=== PATIENT | female | born 1955 | race Caucasian/White ===

== ENCOUNTER → 2023-09-05 12:38 | Outpatient (REF) | payer MEDICARE, OTHER, SELFPAY | LOC: WDC 12:38 | PROVIDERS: ATTENDING PHYSICIAN Physician Assistant Medical | DX: Z12.31 Encounter for screening mammogram for malignant neoplasm of breast (principal) | CPT/HCPCS: 77063; 77067 ==

== ENCOUNTER → 2024-09-10 12:53 | Outpatient (REF) | payer MEDICARE, OTHER, SELFPAY | LOC: WDC 12:53 | PROVIDERS: ATTENDING PHYSICIAN Physician Assistant Medical | DX: Z12.31 Encounter for screening mammogram for malignant neoplasm of breast (principal) | CPT/HCPCS: 77063; 77067 ==

== ENCOUNTER → 2024-10-25 08:17 | Outpatient (REF) | payer MEDICARE, OTHER, SELFPAY | LOC: RAD 08:17 | PROVIDERS: ATTENDING PHYSICIAN Physician Assistant Medical | DX: R10.13 Epigastric pain (principal) | CPT/HCPCS: 76700; 76770 ==

== ENCOUNTER 2024-10-27 10:37 | Inpatient (IN) | payer MEDICARE, OTHER, SELFPAY ==
[2024-10-25 18:21] VITALS: BP 150/81
[2024-10-25 18:44] LABS: Urine Albumin Negative (Neg - Trace); Urine Bilirubin Negative (Negative); Urine Character Clear (Clear); Urine Color Yellow; Urine Glucose Negative (Negative); Urine Ketone Negative (Negative); Urine Leukocyte Negative (Negative); Urine Nitrite Negative (Negative); Urine Occult Blood Negative (Negative); Urine Urobilinogen Negative (Neg - 1+)
[2024-10-25 18:46] LABS: % Basophils 0.3 % (0-2); % Eosinophils 1.6 % (0-6); % Immature Granulocytes 0.2 % (0-0.5); % Lymphocytes 39.9 % (20.5-51.1); % Monocytes 10.3 % (1.7-9.3); % Neutrophils 47.7 % (42.2-75.2); Absolute Eosinophils 0.1 10^3/uL (0-0.7); Absolute Lymphocytes 2.6 10^3/uL (1.2-3.4); Absolute Monocytes 0.7 10^3/uL (0.1-0.6); Absolute Neutrophils 3.1 10^3/uL (1.4-6.5); Hematocrit 37.5 % (37.0-47.0); Hemoglobin 12.5 g/dL (12.0-16.0); Mean Corp Hgb Conc. 33.3 g/dL (33.0-37.0); Mean Corpuscular Hgb 29.8 pg (27.0-31.0); Mean Corpuscular Volume 89.3 fL (81.0-99.0); Mean Platelet Volume 9.8 fL (7.4-10.4); Nucleated Red Blood Cells % 0 %; Platelet Count 256 10^3/uL (130-400); Red Cell Dist. Width 14.9 % (11.5-14.5); White Blood Cell Count 6.4 10^3/uL (4.8-10.8)
[2024-10-25 18:56] LABS: ALT (SGPT) 325 U/L (0-35); AST (SGOT) 154 U/L (14-36); Albumin 4.4 g/dl (3.5-5.0); Alkaline Phosphatase 492 U/L (38-126); Blood Urea Nitrogen 13 mg/dl (7-17); Calcium 9.5 mg/dl (8.4-10.2); Carbon Dioxide 25 mmol/L (22-30); Chloride 105 mmol/L (98-107); Glucose 101 mg/dl (70-99); Potassium 3.6 mmol/L (3.5-5.1); Sodium 135 mmol/L (135-145); Total Bilirubin 6.4 mg/dl (0.2-1.3); Total Protein 7.2 g/dl (6.3-8.2); eGFR > 60.00
[2024-10-25 21:08] VITALS: BP 121/74
[2024-10-25 21:25] VITALS: BMI 20.2
--- NOTE | 2024-10-25 22:35 | ED.GENMED ---
History of Present Illness
General
Chief Complaint: Abdominal Pain
Source: patient
Exam Limitations: none
Time Seen by Provider: 10/25/24 22:10
Nursing documentation reviewed up to this point in time: agreed with
History of Present Illness
History of Present Illness:
Pleasant 69-year-old female presents to the emergency department with right upper quadrant and upper abdominal pain has been present off and on for weeks. Today she had an outpatient ultrasound ordered by her primary care physician that showed
cholelithiasis. They suspected choledocholithiasis in the common bile duct. Patient reports that she was notified this afternoon. By that time the whites of her eyes had yellowed, so she came in to the emergency department. She states that her
pain has not changed. It is still intermittent in nature. She reports it as a dull ache.
Past History
Past History
ED Past Medical History: None
ED Past Surgical History: Orthopedic (Left hip replacement)
Social History
Personal:
Review of Systems
Review of Systems
Allergies reviewed?: Yes
All Other Systems: ROS reviewed and negative except as documented in HPI and ROS
Constitutional: Reports fatigue
EENT: Reports no symptoms
Respiratory: Reports no symptoms
Cardiac: Reports no symptoms
ABD/GI: Reports abdominal pain; Denies nausea, vomiting, constipated or bloody stools
: Reports no symptoms
Musculoskeletal: Reports no symptoms
Skin: Reports no symptoms
Neurological: Reports other (Jaundiced)
Endocrine: Reports no symptoms
Hematologic/Lymphatic: Reports no symptoms
Psychiatric: Reports anxiety
Phy Exam
General Physical Exam
General Presentation: well appearing and no apparent distress
General Skin: warm and dry
General Habitus: normal
General Mental: alert
General Hydration: appears well hydrated
ENT Exam
ENT Exam: EOMI, pharynx normal, neck supple and normocephalic
Eye Exam
Eye Exam: PERRL, cornea clear and conjunctiva normal
Cardiovascular Exam
Cardiovascular Exam: regular rate/rhythm and no edema
Pulmonary Exam
Pulmonary Exam: lungs clear, no respiratory distress, no rales, no crackles, no rhonchi, no stridor, no wheezing and no cough
Gastrointestinal Exam
Gastrointestinal Exam: normal bowel sounds, non tender, soft, no organomegaly, no pulsatile mass and non distended
Neurological Exam
Neurological Exam: alert, oriented x3, no motor deficits and speech normal
Musculoskeletal Exam
Musculoskeletal Exam: full ROM and no edema
Skin Exam
Skin Exam: jaundice (Scleral icterus)
Psychiatric Exam
Psychiatric Exam: normal mood/affect
Course
Orders/Labs/Results
Orders:
Orders
10/25/24 18:29
Complete Blood Count/With Diff Urgent
Comprehensive Metabolic Panel Urgent
Urinalysis Reflex To Culture Urgent
Date Specimen was Collected: 10/25/24
Time Specimen was Collected: 18:24
Abnormal Lab Results
10/25/24
18:29
RDW 14.9 H %
(11.5-14.5)
Absolute Monos (auto) 0.7 H 10^3/uL
(0.1-0.6)
Monocytes % 10.3 H %
(1.7-9.3)
Glucose 101 H mg/dl
(70-99)
Total Bilirubin 6.4 H mg/dl
(0.2-1.3)
AST 154 H U/L
(14-36)
ALT 325 H U/L
(0-35)
Alkaline Phosphatase 492 H U/L
(38-126)
10/25/24 18:29
10/25/24 18:29
Vital Signs
Initial and Last Documented VS:
Initial Vital Signs
Temp Pulse Resp BP Pulse Ox
98.4 F 86 16 150/81 99
10/25/24 18:21 10/25/24 18:21 10/25/24 18:21 10/25/24 18:21 10/25/24 18:21
Last Documented Vital Signs
Temp Pulse Resp BP Pulse Ox
98.4 F 81 18 121/74 100
10/25/24 18:21 10/25/24 21:08 10/25/24 21:08 10/25/24 21:08 10/25/24 21:08
MDM/Problems Addressed
Differential Diagnosis Includes:
Choledocholithiasis, cholecystitis, gallbladder sludge generalized abdominal pain
MDM/Problems Addressed:
69-year-old female presents emergency department with right upper quadrant abdominal pain that is subacute in nature. Ultrasound this morning showed choledocholithiasis versus sludge. Patient became jaundiced this afternoon. Liver function tests
elevated.
Chronic conditions affecting care:
None
*Critical Care Note
Total Time (30-74mins, 75-104mins- exclusive of procedures): Not Applicable
ED Attending Note
-
Portions of this chart may have been created with voice recognition software.� Occasional wrong word or��sound alike� substitutions may have occurred due to the inherent limitations of voice recognition software.
Discharge Plan
Departure
Patient Disposition: Admit
Date of Disposition: 10/25/24
Time of Disposition: 22:45
Admit to: Med/Surg
Presentation/result/management discussed w/ accepting MD/DO: Hospitalist
Discharge Problem:
Choledocholithiasis, Jaundice
Prescriptions:
No Action
multivitamin 1 EACH capsule
1 ea PO DAILY
Calcium+Vitamin D
1 tab PO DAILY
Vitamin C
1 tab PO DAILY
oxycodone-acetaminophen 5 MG/325 MG tablet
1 - 2 tab PO Q4HPRN PRN (Reason: moderate to severe pain) Qty: 15 0RF
polyethylene glycol 3350 17 GRAMS powder in packet
17 grams PO DAILYPRN PRN (Reason: constipation) Qty: 0 0RF
ibuprofen 200 MG tablet
400 - 600 mg PO Q6HPRN PRN (Reason: mild to moderate pain) Qty: 0 0RF
doxycycline monohydrate 100 mg capsule
100 mg PO BID Qty: 42 0RF
Referrals:
Garcia Marrufo PA-C [Family Provider, Family Practice]
Interventions
Interventions:
*Risk Screen - Suicide Last Done: 10/25/24 18:23
*Neglect/Abuse Screening Last Done: 10/25/24 18:23
SI-Kwxexf-Yvmgobdjgr Assessment Last Done: 10/25/24 21:25
Discharge Date and Time
Print Language: TAJIK
--- NOTE | 2024-10-25 22:58 | HPS.HSE ---
Family Physician
-
Family Physician: Garcia Marrufo
Chief Complaint
-
abdominal pain
History of Present Illness
Patient is a 69-year-old female with no significant past medical history who presented to [facility] ED for evaluation at referral of primary care provider. Patient reports having RUQ abdominal pain intermittently for the past several weeks. She was sent
for an out patient ultrasound that was completed this morning. Patients primary care provider called and informed her to go to ED for evaluation and treatment as US suspected choledocholithiasis in the common bile duct. Patient reports primary
notified her of results and they referred her to go to ED because she had observed decolorization in whites of her eyes and very yellow urine post US in morning. Patient denies fever, chills, cough, shortness of breath, chest pain, nausea, vomiting,
constipation, diarrhea or urinary symptoms.
Medical History
Past Medical History
Past Medical History: Reports None
Past Surgical History: Reports Other
Additional Past Surgical History:
left hip replacement
appendectomy
Social History
Tobacco: Non-smoker
Alcohol: Occasional (rare)
Drug: None
Personal:
Living: With Family
Employment: Retired
Family History
Family History: Other (Father: , [place], [place])
Allergies / Home Medications
Allergies reflects when Allergies were last updated in [employer].
Home Medications with original date entered in [employer]
Allergy/Medication List:
Allergies
Allergy/AdvReac Type Severity Reaction Status Date / Time
No Known Allergies Allergy Verified 11/30/15 21:08
Review of Systems
-
History Source: Patient
Constitutional: Reports No Symptoms
EENT: Reports No Symptoms
Respiratory: Reports No Symptoms
Cardiac: Reports No Symptoms
Abdomen/GI: Reports Abdominal Pain (intermittent dull RUQ pain for approximately 5 weeks)
: Reports Other (bright yellow urine )
Musculoskeletal: Reports No Symptoms
Skin: Reports No Symptoms
Neurological: Reports No Symptoms
Endocrine: Reports No Symptoms
Hematologic/Lymphatic: Reports No Symptoms
Psych: Reports No Symptoms
Physical Exam
Vital Signs
Vital Signs
Temp Pulse Resp BP Pulse Ox
98.4 F 81 18 121/74 100
10/25/24 18:21 10/25/24 21:08 10/25/24 21:08 10/25/24 21:08 10/25/24 21:08
Physical Exam
General: Well Developed, Well Nourished, No Apparent Distress, Comfortable and Conversant
HEENT: NormoCephalic, Moist mucous membranes, Atraumatic, Nose Appears Normal, Ears Appear Normal and Other (jaundiced sclera )
Respiratory: Clear
Cardiac: S1/S2 and Regular Rhythm
GI: Soft, Non Distended, Normal Bowel Sounds and Tender
Rectal: Deferred by Provider
Genito-urinary: Deferred by me
Musculoskeletal: No Clubbing, No Cyanosis and No Edema
Skin: Jaundice and IV/Catheter Site
Neuro: Awake, Alert, AO x 3 and Nonfocal/grossly intact
Psych: Calm and Intact Judgment/Insight
Laboratory Results
-
10/25/24 18:29
10/25/24 18:29
Laboratory Results
Total Bilirubin 6.4 mg/dl (0.2-1.3) H 10/25/24 18:29
AST 154 U/L (14-36) H 10/25/24 18:29
ALT 325 U/L (0-35) H 10/25/24 18:29
Alkaline Phosphatase 492 U/L (38-126) H 10/25/24 18:29
Data Reviewed
-
Ultrasound: Report Reviewed by me (Abd: Cholelithiasis. Intrahepatic and extrahepatic bile duct dilatation. Suspected choledocholithiasis versus sludge in the common bile duct. Correlation with laboratory values and ERCP/MRCP as clinically
indicated. )
Lab Data: Labs Reviewed by me (tot bili 6.4, AST 154, ALT 325, Alk Phos 492)
Impression/Plan
-
IMPRESSION/PLAN:
#transaminitis
#choledocholithiasis
tot bili 6.4, AST 154, ALT 325, Alk Phos 492
Abd US: Cholelithiasis.
Intrahepatic and extrahepatic bile duct dilatation. Suspected choledocholithiasis versus sludge in the common bile duct. Correlation with laboratory values and ERCP/MRCP as clinically indicated.
- Admit to med/surg
- Consult GI
- MRCP
- Trend LFTs
- IVF NSS 100cc/hr
Code status: full code
DVT prophylaxis: Lovenox sq
--- NOTE | 2024-10-25 23:03 | W.PN.UPDATE ---
Update Note
Progress Note Update
Patient was independently examined and I agree with H&P written on the same day. In addition:
69yo M wih subacue epigastric pain found Intrahepatic and extrahepatic bile duct dilatation. Suspected choledocholithiasis versus sludge in the common bile duct on US. Elevated LFT with bile stasis pattern. No fever and no leukocytosis
-Choledocholithiasis
follow LFT, MRCP, GI consult, IVF
We have spent at least 77min admitting the patient
[2024-10-26] VITALS (8 sets, daily range): BP systolic 97–137; BP diastolic 48–79
[2024-10-26] MEDS: NSS 1000 IV ×2 (01:39→11:17)
--- NOTE | 2024-10-26 01:56 | PTCARENOTE ---
Patient arrived to unit shorty after 01:00 via stretcher. AAOx3. Pleasant and cooperative with care. C/o of slight headache when first came to unit but reported that headache went away shortly after admission. No signs of distress noted. Oriented to
unit. Call mehta within reach.
[2024-10-26 08:00] LABS: Hemoglobin 12.5 g/dL (12.0-16.0); Mean Corp Hgb Conc. 32.9 g/dL (33.0-37.0); Mean Corpuscular Volume 88.2 fL (81.0-99.0); Platelet Count 255 10^3/uL (130-400); Red Blood Cell Count 4.31 10^6/uL (4.20-5.40); White Blood Cell Count 5.4 10^3/uL (4.8-10.8)
--- NOTE | 2024-10-26 08:18 | CON.GI ---
Addendum entered and electronically signed by Jessica Dominique MD 10/26/24 18:05:
I saw and examined the patient.
The MED SURG NURSE's note was reviewed and I agree with the note.
Comment: This is a 69-year-old female with past medical history as listed below who presented with symptoms of abdominal pain mostly in the right upper quadrant and epigastric area for the past 5 weeks and also was noted to have jaundice and was
noted to have abnormal LFTs on admission with gallstones and intrahepatic and extrahepatic ductal dilatation on ultrasound and was scheduled for an MRI with MRCP. She has a prior history of ductal dilatation and had an EGD with EUS in 2016 and no
CBD stone or stricture or mass was noted at that time, she did have gallstones and was recommended cholecystectomy but patient had not scheduled cholecystectomy. She denies any fevers or chills.
Assessment and plan abdominal pain with obstructive jaundice and prior history of gallstones and possible stricture with ductal dilatation but prior EUS was unremarkable in 2016. Ultrasound this admission shows gallstones with ductal dilatation.
She is scheduled for MRI with MRCP to rule out possible CBD stone versus biliary stricture or mass. Results are currently pending and based on those results will proceed with ERCP or EUS and ERCP
Original Note:
Consultation
-
Date/Time Consultation Requested: 10/26/24 0030
Date/Time Consultation Performed: 10/26/24 0830
Requesting Provider: ISABELLA Brasher
Performing Provider: ISABELLA Ryan, Jessica Dominique MD
Reason for Consultation: increased LFT's, abdominal pain
Medical History
Chief Complaint / HPI
Chief Complaint: abdominal pain
History of Present Illness:
Pt is a 69yo with hx THR, prior appe, gallstone and prior ductal dilation, colon polyps with onset of RUQ pain for several weeks. She completed US abdomen 10/25 with noted cholelithiasis with intra and extrahepatic biliary dilatation and suspected
choledocholithiasis. Labs on admission with WBC 6,400, hbg 12,5, bili 6.4, AST 154, ALT 325, and alk phos 492.
In review of records pt has appe in 2016. At that time imaging with dilated CBD with intrahepatic bile duct dilatation possible prior stone that has passed vs stricture. She proceeded for EUS with EGD with no choledocholithiasis with
distention of gallbladder with sludge and one small stone. otherwise EGD with gastric erythema. She recall no symptoms so did not proceed with mariela at that time. She now began with upper abdominal pain with random episodes over last 5 weeks. She
also admits to some indigestion without any medication use with new onset of jaundice with dark urine. She denies any recent wt changes, nausea, vomiting, diarrhea, constiaption or rectal bleeding. Hx colonoscopy 2022 with HP and TA polyps.
Past Medical History
Past Medical History: Other (colon polyps, gallstones)
Past Surgical History: Appendectomy and Orthopedic (THR)
Social History
Tobacco: Non-Smoker
Alcohol: None
Drug: None
Personal:
Living: With Family
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
Family History
Family History: Reviewed & Not Pertinent
Allergies / Home Medications
Allergy/AdvReac Type Severity Reaction Status Date / Time
No Known Allergies Allergy Verified 11/30/15 21:08
�Medication �Instructions �Recorded
No Meds [No Current Medications] 10/26/24
Review of Systems
-
History Source: Patient
Constitutional: Reports Other (new onset jaundice )
EENT: Reports No Symptoms
Respiratory: Reports No Symptoms
Cardiac: Reports No Symptoms
Abdomen/GI: Reports Abdominal Pain and Other (indigestion )
: Reports Dark Urine
Musculoskeletal: Reports No Symptoms
Skin: Reports No Symptoms
Neurological: Reports No Symptoms
Endocrine: Reports No Symptoms
Hematologic/Lymphatic: Reports No Symptoms
Vital Signs
Temp Pulse Resp BP Pulse Ox
98.4 F 74 18 108/62 98
10/26/24 07:25 10/26/24 07:25 10/26/24 07:25 10/26/24 07:25 10/26/24 07:25
Physical Exam
Exam
General: Well Developed, Well Nourished and No Apparent Distress
HEENT: Normocephalic and Other (minimal jaundice )
Respiratory: Clear
Cardiac: Regular Rhythm
GI: Soft, Non Distended and Tender (minimal upper abdominal pain )
Musculoskeletal: No Clubbing and No Cyanosis
Skin: Warm and Dry
Neuro: Awake, Alert and AO x 3
Psych: Calm
Results
WBC 5.4 10^3/uL (4.8-10.8) 10/26/24 07:27
Hgb 12.5 g/dL (12.0-16.0) 10/26/24 07:27
Hct 38.0 % (37.0-47.0) 10/26/24 07:27
MCV 88.2 fL (81.0-99.0) 10/26/24 07:27
Plt Count 255 10^3/uL (130-400) 10/26/24 07:27
Absolute Neuts (auto) 3.1 10^3/uL (1.4-6.5) 10/25/24 18:29
Sodium 135 mmol/L (135-145) 10/25/24 18:29
Potassium 3.6 mmol/L (3.5-5.1) 10/25/24 18:29
Chloride 105 mmol/L (98-107) 10/25/24 18:29
Carbon Dioxide 25 mmol/L (22-30) 10/25/24 18:29
BUN 13 mg/dl (7-17) 10/25/24 18:29
Creatinine 0.8 mg/dL (0.6-1.0) 10/25/24 18:29
Calcium 9.5 mg/dl (8.4-10.2) 10/25/24 18:29
Total Bilirubin 6.4 mg/dl (0.2-1.3) H 10/25/24 18:29
AST 154 U/L (14-36) H 10/25/24 18:29
ALT 325 U/L (0-35) H 10/25/24 18:29
Alkaline Phosphatase 492 U/L (38-126) H 10/25/24 18:29
Diagnostic Image Results:
12/02/15 MRCP
Cholelithiasis.
Distention of the proximal to mid common bile duct and of the intrahepatic biliary ductal system. The distal common bile duct tapers. No stone in the common bile duct. Findings could be related to chronic previous obstruction (as perhaps by a
gallstone that has passed). Alternatively, there could be a benign or malignant stricture of the distalmost common bile duct. Consider ERCP for additional evaluation, if clinically warranted.
Mild edema in the ileocolic mesentery, likely related to recent appendectomy.
Prior GI Procedures:
EUS:
12/2015- EUS 1) No evidence of choledocholithiasis. The gallbladder
is distended with sludge and one small stone. Proceed
with cholecystectomy if surgery recommends it.
2) Normal pancreas parenchyma.
3) Regular Z-line.
4) Erythematous antrum which was biopsied.
5) Normal duodenal mucosa.
Colonoscopy: 09/2022 Trip, good prep
- One 8 mm polyp in the ascending colon, removed with
a cold snare. Resected and retrieved.
- One 5 mm polyp in the descending colon, removed with
a cold snare. Resected and retrieved.
- One 3 mm polyp in the rectum, removed with a cold
snare. Resected and retrieved.
- One 2 mm polyp in the rectum, removed with a jumbo
cold forceps. Resected and retrieved.
bx TA and HP polyps
Assessment / Plan
-
Pt is a 69yo with hx THR, prior appe, gallstones, prior ductal dilation, colon polyps with onset of RUQ pain for several weeks with onset of jaundice and dark urine. She completed US abdomen 10/25 with noted cholelithiasis with intra and
extrahepatic biliary dilatation and suspected choledocholithiasis. Labs on admission with WBC 6,400, hbg 12,5, bili 6.4, AST 154, ALT 325, and alk phos 492.In review of records pt has appe in 2016. At that time imaging with dilated CBD with
intrahepatic bile duct dilatation possible prior stone that has passed vs stricture. She proceeded for EUS with EGD with no choledocholithiasis with distention of gallbladder with sludge and one small stone. otherwise EGD with gastric erythema.
She recall no symptoms so did not proceed with mariela at that time.
-intermittent upper abdominal pain x 5 weeks
-increased LFT's
- US with cholelithiasis, ductal dilation ans suspected choledocholithiasis
-prior abnormal MRCP with ductal dilatation with possible passed stone vs stricture s/p follow up EUS with no choledocholithiasis GB distention with stone/sludge
other med problems:
-THR
-appe
-colon polyps
PLAN:etiology of symptoms related to CBD stone vs other
plan for MRCP -- will add with and without contrast with hx possible stricture on prior imaging
-if + stone then proceed with ERCP and surgical eval
cont NPO
hold Lovenox and add compression stocking if ERCP needed
trend labs -- add t bili and lipase
will add INR
-
-
Thank you for consultation and allowing me to participate in the patient's care. Please call the alteration worker GI physician during the after hours with any questions or concerns.
[2024-10-26 08:52] LABS: ALT (SGPT) 297 U/L (0-35); AST (SGOT) 160 U/L (14-36); Alkaline Phosphatase 501 U/L (38-126); Blood Urea Nitrogen 9 mg/dl (7-17); Calcium 9.2 mg/dl (8.4-10.2); Carbon Dioxide 21 mmol/L (22-30); Chloride 111 mmol/L (98-107); Estimated Creatinine Clearance 59 ml/min; Glucose 82 mg/dl (70-99); Potassium 3.8 mmol/L (3.5-5.1); Sodium 140 mmol/L (135-145); Total Bilirubin 7.1 mg/dl (0.2-1.3); Total Protein 6.6 g/dl (6.3-8.2); eGFR > 60.00
[2024-10-26 09:09] LABS: Direct Bilirubin 5.6 mg/dl (0.0-0.4); Lipase 117 U/L (23-300)
--- NOTE | 2024-10-26 09:54 | W.PN.HOSP.TC ---
Today's Communication/Plan
-
For MRCP today
Assessment / Plan
Assessment / Plan
HPI: 69-year-old female with no significant past medical history who presented to [facility] ED for evaluation at referral of primary care provider. Patient reports having RUQ abdominal pain intermittently for the past several weeks. She was sent for an
out patient ultrasound that was completed this morning. Patients primary care provider called and informed her to go to ED for evaluation and treatment as US suspected choledocholithiasis in the common bile duct. Patient reports primary notified her
of results and they referred her to go to ED because she had observed decolorization in whites of her eyes and very yellow urine post US in morning. Patient denies fever, chills, cough, shortness of breath, chest pain, nausea, vomiting,
constipation, diarrhea or urinary symptoms.
#Hyperbilirubinemia/jaundice
#Transaminitis
#Dilated common bile duct
Appreciate GI input, patient for MRCP today
Continue n.p.o., IV fluids, pain control as needed
DVT prophylaxis�SCDs
Full code
Total time spent to see the patient on the floor, examine the patient, review data and lab results, discuss treatment plan with patient, nursing staff around 35 minutes.
Physical Exam
General: No acute distress
HEENT: Normocephalic, Atraumatic, EOMI, MMM, icteric sclerae
Respiratory: Clear to Auscultation bilaterally
Cardiac: Normal S1/S2, Regular Rate and Rhythm
GI: Soft, tender at the right upper quadrant, Nondistended, Normal Bowel Sounds
Extremities: No Clubbing, Cyanosis, or Edema
Neuro: Nonfocal/Grossly Intact
Psych: Calm, Cooperative
Derm: Jaundice
Anticipated Discharge: > 48 hours
Subjective/Interval History
-
Date of Service: October 26, 2024
Patient reports her right upper quadrant abdominal pain is mild. Denies nausea, denies vomiting. No constipation, no diarrhea. No fever, no chest pain, no shortness of breath.
Objective Data
-
Labs:
Laboratory Results
10/26/24 10/26/24
07:27 09:43
WBC 5.4
Hgb 12.5
Hct 38.0
Plt Count 255
PT Pending
INR Pending
Sodium 140
Potassium 3.8
Chloride 111 H
Carbon Dioxide 21 L
BUN 9
Creatinine 0.8
Glucose 82
Calcium 9.2
Total Bilirubin 7.1 H
AST 160 H
ALT 297 H
Alkaline Phosphatase 501 H
Vital Signs:
Vital Signs
Temp Pulse Resp BP Pulse Ox
98.4 F 74 18 108/62 98
10/26/24 07:25 10/26/24 07:25 10/26/24 07:25 10/26/24 07:25 10/26/24 07:25
I&O
10/25/24 10/26/24 10/27/24
06:59 06:59 06:59
Intake Total 480 / 480
Balance 480 / 480
[2024-10-26 10:32] LABS: INR 0.98; PT 13.4 Sec (11.4-14.6)
--- NOTE | 2024-10-26 12:14 | CM ---
CM reviewed chart, patient seen bedside, initial assessment completed. Patient resides with her in a two story home, two steps to enter. Patient is independent with ADLs/IADLs, reports VN in past in 2011 after his replacement, denies SNF
history. Patient confirms PCP Garcia Marrufo, pharmacy [facility], confirms prescription coverage, denies any financial insecurities at home. SMITH form verbally reviewed, provided with copy, placed in chart. CM will continue to follow for all
discharge planning needs.
Plan; return home with
[2024-10-27] MEDS: NSS 1000 IV (03:36)
[2024-10-27] MEDS: ZOFRAN 4 MG IV (04:58)
[2024-10-27] MEDS: TORADOL 15 MG IV ×2 (05:40→14:40)
[2024-10-27 07:26] LABS: Hematocrit 37.3 % (37.0-47.0); Hemoglobin 12.7 g/dL (12.0-16.0); Mean Corpuscular Hgb 29.8 pg (27.0-31.0); Mean Corpuscular Volume 87.6 fL (81.0-99.0); Mean Platelet Volume 9.8 fL (7.4-10.4); Platelet Count 273 10^3/uL (130-400); Red Blood Cell Count 4.26 10^6/uL (4.20-5.40); Red Cell Dist. Width 14.5 % (11.5-14.5); White Blood Cell Count 11.8 10^3/uL (4.8-10.8)
[2024-10-27 07:47] VITALS: BP 108/59
[2024-10-27 07:51] LABS: ALT (SGPT) 225 U/L (0-35); AST (SGOT) 98 U/L (14-36); Alkaline Phosphatase 407 U/L (38-126); Blood Urea Nitrogen 17 mg/dl (7-17); Calcium 8.6 mg/dl (8.4-10.2); Carbon Dioxide 23 mmol/L (22-30); Chloride 109 mmol/L (98-107); Estimated Creatinine Clearance 67 ml/min; Glucose 151 mg/dl (70-99); Potassium 3.8 mmol/L (3.5-5.1); Sodium 137 mmol/L (135-145); Total Bilirubin 2.8 mg/dl (0.2-1.3); Total Protein 5.3 g/dl (6.3-8.2); eGFR > 60.00
--- NOTE | 2024-10-27 09:25 | W.PN.HOSP.TC ---
Today's Communication/Plan
-
see bold
Assessment / Plan
Assessment / Plan
HPI: 69-year-old female with no significant past medical history who presented to [facility] ED for evaluation at referral of primary care provider. Patient reports having RUQ abdominal pain intermittently for the past several weeks. She was sent for an
out patient ultrasound that was completed this morning. Patients primary care provider called and informed her to go to ED for evaluation and treatment as US suspected choledocholithiasis in the common bile duct. Patient reports primary notified her
of results and they referred her to go to ED because she had observed decolorization in whites of her eyes and very yellow urine post US in morning. Patient denies fever, chills, cough, shortness of breath, chest pain, nausea, vomiting,
constipation, diarrhea or urinary symptoms.
#Hyperbilirubinemia/jaundice
#Transaminitis
#Dilated common bile duct
MRCP shows biliary stricture concerning for malignancy
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
Follow-up on CA 19�9, and FNA biopsy results
#Post ERCP pancreatitis
Pain control, IV fluids, antiemetics
DVT prophylaxis�SCDs
Full code
Total time spent to see the patient on the floor, examine the patient, review data and lab results, discuss treatment plan with patient, nursing staff around 50 minutes.
Physical Exam
General: No acute distress
HEENT: Normocephalic, Atraumatic, EOMI, MMM, icteric sclerae
Respiratory: Clear to Auscultation bilaterally
Cardiac: Normal S1/S2, Regular Rate and Rhythm
GI: Soft, tender at the epigastrium, Nondistended, Normal Bowel Sounds
Extremities: No Clubbing, Cyanosis, or Edema
Neuro: Nonfocal/Grossly Intact
Psych: Calm, Cooperative
Derm: Jaundice
Anticipated Discharge: 24 - 48 hours
Subjective/Interval History
-
Date of Service: October 27, 2024
Patient complains of severe epigastric abdominal pain, and vomiting. No fever, no chest pain, no shortness of breath.
Objective Data
-
Labs:
Laboratory Results
10/27/24
07:14
WBC 11.8 H
Hgb 12.7
Hct 37.3
Plt Count 273
Sodium 137
Potassium 3.8
Chloride 109 H
Carbon Dioxide 23
BUN 17
Creatinine 0.7
Glucose 151 H
Calcium 8.6
Total Bilirubin 2.8 H D
AST 98 H
ALT 225 H
Alkaline Phosphatase 407 H
Vital Signs:
Vital Signs
Temp Pulse Resp BP Pulse Ox
98.3 F 60 16 108/59 99
10/27/24 07:47 10/27/24 07:47 10/27/24 07:47 10/27/24 07:47 10/27/24 07:47
I&O
10/26/24 10/27/24 10/28/24
06:59 06:59 06:59
Intake Total 480 / 480 2840 / 2840
Balance 480 / 480 2840 / 2840
[2024-10-27] MEDS: DILAUDID 0.5 MG IV ×2 (09:52→21:02)
[2024-10-27 10:43] LABS: Lipase > 4000 U/L (23-300)
--- NOTE | 2024-10-27 13:32 | CM ---
Chart reviewed and case packer and sealer will follow with patient progress for discharge planning needs.
Plan; Home when stable.
--- NOTE | 2024-10-27 14:28 | W.PN.GI.CBS2 ---
Addendum entered and electronically signed by Jessica Dominique MD 10/27/24 17:06:
I saw and examined the patient.
The [employer]'s note was reviewed and I agree with the note.
Comment: Obstructive jaundice status post EUS and ERCP 10/26 with with findings as listed below she had a biliary stricture and had sphincterotomy with stent placement no CBD stones were noted, also on EUS she was noted to have a possible
pancreatic mass status post FNA. Her LFTs are trending down but today morning she had an episode of worsening pain with nausea vomiting, lipase was checked and was greater than 4000 she likely has post ERCP pancreatitis. We changed her fluids to
lactated Ringer's increase increased rate to 150 mL/h continue pain control and Zofran as needed. CA 19-9 and pathology is pending. discussed findings with patient at bedside. Hopefully if pain improves tomorrow can advance diet for today continue
clear liquids. She remains afebrile but has leukocytosis today. She does have gallstones but will hold off on evaluation for cholecystectomy until the pathology is back from the pancreatic FNA.
Original Note:
Today's Communication / Plan
-
s/p MRI/EUS/ERCP as noted with possible pancreatic mass, liver focus and stenting bx pending
some pain post procedure with lipase >4000, but improved LFT's
change IVF to LR at 150ml/hr
Ca19-9 pending
on clear diet
pain control per hospitalist
cont compression stocking
reviewed again with patient and Dr. Dominique about results of all testing as noted
messages sent via [employer] text to call pt will need follow up visit with Dr. Ponce
reviewed with nursing staff
Assessment / Plan
-
Pt is a 69yo with hx THR, prior appe, gallstones, prior ductal dilation, colon polyps with onset of RUQ pain for several weeks with onset of jaundice and dark urine. She completed US abdomen 10/25 with noted cholelithiasis with intra and
extrahepatic biliary dilatation and suspected choledocholithiasis. Labs on admission with WBC 6,400, hbg 12,5, bili 6.4, AST 154, ALT 325, and alk phos 492.In review of records pt has appe in 2016. At that time imaging with dilated CBD with
intrahepatic bile duct dilatation possible prior stone that has passed vs stricture. She proceeded for EUS with EGD with no choledocholithiasis with distention of gallbladder with sludge and one small stone. otherwise EGD with gastric erythema.
She recall no symptoms so did not proceed with mariela at that time.
10/26/24 MR Abdomen W/o & W Contrast
Severe intrahepatic and extrahepatic bile duct dilatation, and narrowing of the common bile duct at the level of the head of the pancreas most in keeping with a bile duct stricture. Concern for a malignant stricture with a region of ill-defined soft
tissue attenuation at the superior margin of the head of the pancreas measuring 2.4 x 2.1 cm suspicious for pancreatic adenocarcinoma. Recommend soft tissue sampling for more definitive characterization.
2.1 cm focus of intermediate signal in the central aspect of the medial left hepatic lobe. Possibly periportal edema or volume averaging, but a metastatic liver lesion or other neoplastic process such as a cholangiocarcinoma are not excluded.
Recommend continued attention on follow-up imaging and/or soft tissue sampling.
Cholelithiasis.
10/26/24 EUS - Rkis - There was no sign of significant pathology in the genu of the pancreas, pancreatic body and pancreatic tail.
- A possible mass was identified in the pancreatic head. This was staged T2 Nx Mx by endosonographic
criteria. The staging applies if malignancy is confirmed. Fine needle aspiration performed.
- There was dilation in the common bile duct which measured up to 17 mm.
- Multiple stones were visualized endosonographically in the likely cystic duct.
- Multiple stones were visualized endosonographically in the gallbladder body.
- There was no sign of significant pathology in the ampulla.
- There was no evidence of significant pathology in the left lobe of the liver.
10/26/24 ERCP - A single severe biliary stricture was found in the lower third of the main bile duct. The stricture was
indeterminate - The upper third of the main bile duct, middle third
of the main bile duct, left main hepatic duct, right main hepatic duct and common hepatic duct were
severely dilated. - A biliary sphincterotomy was performed.
- One plastic biliary stent was placed into the common bile duct.
- One plastic biliary stent was placed into the common bile duct.
-post ERCP pancreatitis
-intermittent upper abdominal pain x 5 weeks with increased LFT's
-MRI/EUS/ERCP as noted with concern for intra and extrahepatic biliary dilatation, bile duct stricture at head of pancreas, with concern for possible pancreatic mass
-MRI with focus in liver
-multiple cystic duct stones
-cholelithiasics
-prior abnormal MRCP 2015 with ductal dilatation with possible passed stone vs stricture s/p follow up EUS with no choledocholithiasis GB distention with stone/sludge
other med problems:
-THR
-appe
-colon polyps
PLAN:
s/p MRI/EUS/ERCP as noted with possible pancreatic mass, liver focus and stenting bx pending
some pain post procedure with lipase >4000 but improved LFT's
change IVF to LR at 150ml/hr
Ca19-9 pending
on clear diet
pain control per hospitalist
cont compression stocking
reviewed again with patient and Dr. Dominique about results of all testing as noted
messages sent via [employer] text to call pt will need follow up visit with Dr. Ponce
reviewed with nursing staff
Subjective
Subjective
Date of Service: October 27, 2024
some abdominal pain post procedure, slight improvement this afternoon taking some sips liquids
Objective
Data Reviewed
Laboratory Data:
Laboratory Results
10/27/24 07:14
10/27/24 07:14
Laboratory Results
PT 13.4 Sec (11.4-14.6) 10/26/24 09:43
INR 0.98 10/26/24 09:43
Total Bilirubin 2.8 mg/dl (0.2-1.3) H D 10/27/24 07:14
AST 98 U/L (14-36) H 10/27/24 07:14
ALT 225 U/L (0-35) H 10/27/24 07:14
Alkaline Phosphatase 407 U/L (38-126) H 10/27/24 07:14
Lipase > 4000 U/L (23-300) H* 10/27/24 07:14
Vital Signs and I&O:
Vital Signs
Temp Pulse Resp BP Pulse Ox
98.3 F 60 16 108/59 99
10/27/24 07:47 10/27/24 07:47 10/27/24 07:47 10/27/24 07:47 10/27/24 07:47
I&O
10/26/24 10/27/24 10/28/24
06:59 06:59 06:59
Intake Total 480 / 480 2840 / 2840
Balance 480 / 480 2840 / 2840
Physical Exam
Physical Exam
HEENT: Anicteric and Moist mucous membranes
Cardiology: Normal Sinus Rhythm
Pulmonary: Clear
GI: Soft, Non Distended and Tender (mild )
Extremities: No Edema
Neuro: Non Focal
[2024-10-27] MEDS: LR 1000 IV ×2 (15:15→21:02)
[2024-10-27] MEDS: NSS IV (15:17)
[2024-10-27 15:31] VITALS: BP 146/70
[2024-10-27 23:07] VITALS: BP 125/69
[2024-10-28] MEDS: LR 1000 IV ×3 (05:02→17:33)
[2024-10-28 07:11] VITALS: BP 129/65
[2024-10-28 07:41] LABS: Hematocrit 39.8 % (37.0-47.0); Hemoglobin 13.6 g/dL (12.0-16.0); Mean Corp Hgb Conc. 34.2 g/dL (33.0-37.0); Mean Corpuscular Volume 87.9 fL (81.0-99.0); Mean Platelet Volume 10.1 fL (7.4-10.4); Platelet Count 255 10^3/uL (130-400); Red Blood Cell Count 4.53 10^6/uL (4.20-5.40); Red Cell Dist. Width 15.2 % (11.5-14.5); White Blood Cell Count 10.1 10^3/uL (4.8-10.8)
[2024-10-28 08:18] LABS: ALT (SGPT) 158 U/L (0-35); AST (SGOT) 59 U/L (14-36); Albumin 2.7 g/dl (3.5-5.0); Alkaline Phosphatase 302 U/L (38-126); Blood Urea Nitrogen 20 mg/dl (7-17); Calcium 8.7 mg/dl (8.4-10.2); Carbon Dioxide 26 mmol/L (22-30); Chloride 110 mmol/L (98-107); Estimated Creatinine Clearance 78 ml/min; Glucose 97 mg/dl (70-99); Potassium 4.2 mmol/L (3.5-5.1); Sodium 137 mmol/L (135-145); Total Bilirubin 1.9 mg/dl (0.2-1.3); Total Protein 5.1 g/dl (6.3-8.2); eGFR > 60.00
--- NOTE | 2024-10-28 08:51 | W.PN.HOSP.TC ---
Today's Communication/Plan
-
Continue clear liquid diet, IV fluids, pain control
Assessment / Plan
Assessment / Plan
HPI: 69-year-old female with no significant past medical history who presented to [facility] ED for evaluation at referral of primary care provider. Patient reports having RUQ abdominal pain intermittently for the past several weeks. She was sent for an
out patient ultrasound that was completed this morning. Patients primary care provider called and informed her to go to ED for evaluation and treatment as US suspected choledocholithiasis in the common bile duct. Patient reports primary notified her
of results and they referred her to go to ED because she had observed decolorization in whites of her eyes and very yellow urine post US in morning. Patient denies fever, chills, cough, shortness of breath, chest pain, nausea, vomiting,
constipation, diarrhea or urinary symptoms.
#Hyperbilirubinemia/jaundice
#Transaminitis
#Dilated common bile duct
MRCP shows biliary stricture concerning for malignancy
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
Follow-up on CA 19�9, and FNA biopsy results
#Post ERCP pancreatitis
Clear liquid diet, pain control, IV fluids, antiemetics
DVT prophylaxis�SCDs
Full code
Total time spent to see the patient on the floor, examine the patient, review data and lab results, discuss treatment plan with patient, nursing staff around 40 minutes.
Physical Exam
General: No acute distress
HEENT: Normocephalic, Atraumatic, EOMI, MMM, icteric sclerae
Respiratory: Clear to Auscultation bilaterally
Cardiac: Normal S1/S2, Regular Rate and Rhythm
GI: Soft, tender at the epigastrium, Nondistended, Normal Bowel Sounds
Extremities: No Clubbing, Cyanosis, or Edema
Neuro: Nonfocal/Grossly Intact
Psych: Calm, Cooperative
Derm: Jaundice
Anticipated Discharge: 24 - 48 hours
Subjective/Interval History
-
Date of Service: October 28, 2024
Patient reports improvement in epigastric abdominal pain, currently 1 out of 10 in intensity. Nausea and vomiting resolved. No fever, no chest pain, no shortness of breath.
Objective Data
-
Labs:
Laboratory Results
10/28/24
07:20
WBC 10.1
Hgb 13.6
Hct 39.8
Plt Count 255
Sodium 137
Potassium 4.2
Chloride 110 H
Carbon Dioxide 26
BUN 20 H
Creatinine 0.6
Glucose 97
Calcium 8.7
Total Bilirubin 1.9 H
AST 59 H
ALT 158 H
Alkaline Phosphatase 302 H
Vital Signs:
Vital Signs
Temp Pulse Resp BP Pulse Ox
99.3 F 82 16 129/65 95
10/28/24 07:11 10/28/24 07:11 10/28/24 07:11 10/28/24 07:11 10/28/24 07:11
I&O
10/27/24 10/28/24 10/29/24
06:59 06:59 06:59
Intake Total 2840 / 2840 600 / 600
Balance 2840 / 2840 600 / 600
--- NOTE | 2024-10-28 12:34 | W.PN.GI.CBS2 ---
Today's Communication / Plan
-
continue clears
Assessment / Plan
-
Pt is a 69yo with hx THR, prior appe, gallstones, prior ductal dilation, colon polyps with onset of RUQ pain for several weeks with onset of jaundice and dark urine. She completed US abdomen 10/25 with noted cholelithiasis with intra and
extrahepatic biliary dilatation and suspected choledocholithiasis. Labs on admission with WBC 6,400, hbg 12,5, bili 6.4, AST 154, ALT 325, and alk phos 492.In review of records pt has appe in 2016. At that time imaging with dilated CBD with
intrahepatic bile duct dilatation possible prior stone that has passed vs stricture. She proceeded for EUS with EGD with no choledocholithiasis with distention of gallbladder with sludge and one small stone. otherwise EGD with gastric erythema.
She recall no symptoms so did not proceed with mariela at that time.
10/26/24 MR Abdomen W/o & W Contrast
Severe intrahepatic and extrahepatic bile duct dilatation, and narrowing of the common bile duct at the level of the head of the pancreas most in keeping with a bile duct stricture. Concern for a malignant stricture with a region of ill-defined soft
tissue attenuation at the superior margin of the head of the pancreas measuring 2.4 x 2.1 cm suspicious for pancreatic adenocarcinoma. Recommend soft tissue sampling for more definitive characterization.
2.1 cm focus of intermediate signal in the central aspect of the medial left hepatic lobe. Possibly periportal edema or volume averaging, but a metastatic liver lesion or other neoplastic process such as a cholangiocarcinoma are not excluded.
Recommend continued attention on follow-up imaging and/or soft tissue sampling.
Cholelithiasis.
10/26/24 EUS - Kris - There was no sign of significant pathology in the genu of the pancreas, pancreatic body and pancreatic tail.
- A possible mass was identified in the pancreatic head. This was staged T2 Nx Mx by endosonographic
criteria. The staging applies if malignancy is confirmed. Fine needle aspiration performed.
- There was dilation in the common bile duct which measured up to 17 mm.
- Multiple stones were visualized endosonographically in the likely cystic duct.
- Multiple stones were visualized endosonographically in the gallbladder body.
- There was no sign of significant pathology in the ampulla.
- There was no evidence of significant pathology in the left lobe of the liver.
10/26/24 ERCP - A single severe biliary stricture was found in the lower third of the main bile duct. The stricture was
indeterminate - The upper third of the main bile duct, middle third
of the main bile duct, left main hepatic duct, right main hepatic duct and common hepatic duct were
severely dilated. - A biliary sphincterotomy was performed.
- One plastic biliary stent was placed into the common bile duct.
- One plastic biliary stent was placed into the common bile duct.
-post ERCP pancreatitis
-intermittent upper abdominal pain x 5 weeks with increased LFT's
-MRI/EUS/ERCP as noted with concern for intra and extrahepatic biliary dilatation, bile duct stricture at head of pancreas, with concern for possible pancreatic mass
-MRI with focus in liver
-multiple cystic duct stones
-cholelithiasics
-prior abnormal MRCP 2015 with ductal dilatation with possible passed stone vs stricture s/p follow up EUS with no choledocholithiasis GB distention with stone/sludge
other med problems:
-THR
-appe
-colon polyps
PLAN:
- continue fluids
- continue clears wouldn't advance yet
- pain control
- monitor lfts (improved from yesterday
- f/u with Dr. Ponce
Subjective
Subjective
Date of Service: October 28, 2024
Pt vomited jello and had pain last night. Today tolerated clears with less discomfort
Objective
Data Reviewed
Laboratory Data:
Laboratory Results
10/28/24 07:20
10/28/24 07:20
Laboratory Results
PT 13.4 Sec (11.4-14.6) 10/26/24 09:43
INR 0.98 10/26/24 09:43
Total Bilirubin 1.9 mg/dl (0.2-1.3) H 10/28/24 07:20
AST 59 U/L (14-36) H 10/28/24 07:20
ALT 158 U/L (0-35) H 10/28/24 07:20
Alkaline Phosphatase 302 U/L (38-126) H 10/28/24 07:20
Lipase > 4000 U/L (23-300) H* 10/27/24 07:14
Vital Signs and I&O:
Vital Signs
Temp Pulse Resp BP Pulse Ox
99.3 F 82 16 129/65 95
10/28/24 07:11 10/28/24 07:11 10/28/24 07:11 10/28/24 07:11 10/28/24 07:11
I&O
10/27/24 10/28/24 10/29/24
06:59 06:59 06:59
Intake Total 2840 / 2840 600 / 600
Balance 2840 / 2840 600 / 600
Physical Exam
Physical Exam
GI: Soft and Tender (tender over mid abdomen)
Neuro: Non Focal
[2024-10-28 15:00] VITALS: BP 137/65
--- NOTE | 2024-10-28 15:29 | CM ---
Chart reviewed and patient has switched to inpatient, IMM reviewed with patient and signed, patient to return to home with spouse when stable.
Plan; Home with spouse when stable.
[2024-10-28 23:08] VITALS: BP 120/66
[2024-10-29] MEDS: LR 1000 IV ×4 (00:16→20:22)
[2024-10-29 07:10] VITALS: BP 129/66
--- NOTE | 2024-10-29 08:03 | W.PN.HOSP.TC ---
Today's Communication/Plan
-
Continue IV fluids, advance to full liquids
Assessment / Plan
Assessment / Plan
HPI: 69-year-old female with no significant past medical history who presented to [facility] ED for evaluation at referral of primary care provider. Patient reports having RUQ abdominal pain intermittently for the past several weeks. She was sent for an
out patient ultrasound that was completed this morning. Patients primary care provider called and informed her to go to ED for evaluation and treatment as US suspected choledocholithiasis in the common bile duct. Patient reports primary notified her
of results and they referred her to go to ED because she had observed decolorization in whites of her eyes and very yellow urine post US in morning. Patient denies fever, chills, cough, shortness of breath, chest pain, nausea, vomiting,
constipation, diarrhea or urinary symptoms.
#Hyperbilirubinemia/jaundice
#Transaminitis
#Dilated common bile duct
MRCP shows biliary stricture concerning for malignancy
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
Follow-up on CA 19�9, and FNA biopsy results
#Post ERCP pancreatitis
Advance to full liquid diet, pain control, IV fluids, antiemetics
DVT prophylaxis�SCDs
Full code
Updated on phone 10/29
Total time spent to see the patient on the floor, examine the patient, review data and lab results, discuss treatment plan with patient, nursing staff around 45 minutes.
Physical Exam
General: No acute distress
HEENT: Normocephalic, Atraumatic, EOMI, MMM, icteric sclerae
Respiratory: Clear to Auscultation bilaterally
Cardiac: Normal S1/S2, Regular Rate and Rhythm
GI: Soft, tender at the epigastrium, Nondistended, Normal Bowel Sounds
Extremities: No Clubbing, Cyanosis, or Edema
Neuro: Nonfocal/Grossly Intact
Psych: Calm, Cooperative
Derm: Jaundice
Anticipated Discharge: 24 - 48 hours
Subjective/Interval History
-
Date of Service: October 29, 2024
Patient reports improvement of her abdominal pain. Epigastric and right upper quadrant pain are minimal. She reports lower pelvic gas pain. Nausea vomiting resolved. She tolerated a clear liquid diet yesterday. No fever.
Objective Data
-
Labs:
Laboratory Results
10/29/24
06:34
Sodium Pending
Potassium Pending
Chloride Pending
Carbon Dioxide Pending
BUN Pending
Creatinine Pending
Glucose Pending
Calcium Pending
Total Bilirubin Pending
AST Pending
ALT Pending
Alkaline Phosphatase Pending
Vital Signs:
Vital Signs
Temp Pulse Resp BP Pulse Ox
98.3 F 75 16 129/66 95
10/29/24 07:10 10/29/24 07:10 10/29/24 07:10 10/29/24 07:10 10/29/24 07:10
I&O
10/28/24 10/29/24 10/30/24
06:59 06:59 06:59
Intake Total 600 / 600 2830 / 2830
Balance 600 / 600 2830 / 2830
[2024-10-29 08:20] LABS: ALT (SGPT) 96 U/L (0-35); AST (SGOT) 36 U/L (14-36); Albumin 2.3 g/dl (3.5-5.0); Alkaline Phosphatase 238 U/L (38-126); Blood Urea Nitrogen 13 mg/dl (7-17); Calcium 8.2 mg/dl (8.4-10.2); Carbon Dioxide 29 mmol/L (22-30); Chloride 107 mmol/L (98-107); Estimated Creatinine Clearance 78 ml/min; Glucose 73 mg/dl (70-99); Potassium 3.9 mmol/L (3.5-5.1); Sodium 137 mmol/L (135-145); Total Bilirubin 2.1 mg/dl (0.2-1.3); Total Protein 4.6 g/dl (6.3-8.2); eGFR > 60.00
[2024-10-29 08:29] LABS: Lipase 2092 U/L (23-300)
[2024-10-29] MEDS: MYLICON 80 MG PO ×2 (11:04→19:39)
[2024-10-29 15:08] VITALS: BP 127/65
--- NOTE | 2024-10-29 15:17 | W.PN.GI.CBS2 ---
Today's Communication / Plan
-
full liquids
Assessment / Plan
-
10/26/24 ERCP - A single severe biliary stricture was found in the lower third of the main bile duct. The stricture was
indeterminate - The upper third of the main bile duct, middle third
of the main bile duct, left main hepatic duct, right main hepatic duct and common hepatic duct were
severely dilated. - A biliary sphincterotomy was performed.
- One plastic biliary stent was placed into the common bile duct.
- One plastic biliary stent was placed into the common bile duct.
-post ERCP pancreatitis
- constipation
PLAN:
- advance to full liquids
- suppository
- f/u with Dr. Ponce
Subjective
Subjective
Date of Service: October 29, 2024
Pt with improved pain, tolerated clears
some constipation
Objective
Data Reviewed
Laboratory Data:
Laboratory Results
10/28/24 07:20
10/29/24 06:34
Laboratory Results
PT 13.4 Sec (11.4-14.6) 10/26/24 09:43
INR 0.98 10/26/24 09:43
Total Bilirubin 2.1 mg/dl (0.2-1.3) H 10/29/24 06:34
AST 36 U/L (14-36) 10/29/24 06:34
ALT 96 U/L (0-35) H 10/29/24 06:34
Alkaline Phosphatase 238 U/L (38-126) H 10/29/24 06:34
Lipase 2092 U/L (23-300) H* 10/29/24 06:34
Vital Signs and I&O:
Vital Signs
Temp Pulse Resp BP Pulse Ox
98.1 F 86 18 127/65 94
10/29/24 15:08 10/29/24 15:08 10/29/24 15:08 10/29/24 15:08 10/29/24 15:08
I&O
10/28/24 10/29/24 10/30/24
06:59 06:59 06:59
Intake Total 600 / 600 2830 / 2830
Balance 600 / 600 2830 / 2830
Physical Exam
Physical Exam
GI: Soft and Tender (improved tenderness)
Neuro: Non Focal
[2024-10-29 17:16] LABS: CA 19-9 49 U/mL (<=35)
[2024-10-29] MEDS: TORADOL 15 MG IV (21:35)
[2024-10-29 23:15] VITALS: BP 116/60
[2024-10-30] MEDS: LR 1000 IV (02:59)
[2024-10-30 07:13] LABS: ALT (SGPT) 64 U/L (0-35); AST (SGOT) 25 U/L (14-36); Alkaline Phosphatase 175 U/L (38-126); Blood Urea Nitrogen 11 mg/dl (7-17); Calcium 8.1 mg/dl (8.4-10.2); Carbon Dioxide 31 mmol/L (22-30); Chloride 107 mmol/L (98-107); Estimated Creatinine Clearance 78 ml/min; Glucose 80 mg/dl (70-99); Lipase 252 U/L (23-300); Potassium 3.6 mmol/L (3.5-5.1); Sodium 137 mmol/L (135-145); Total Bilirubin 1.8 mg/dl (0.2-1.3); Total Protein 4.1 g/dl (6.3-8.2); eGFR > 60.00
[2024-10-30 07:30] VITALS: BP 101/57
--- NOTE | 2024-10-30 08:00 | W.PN.HOSP.TC ---
Today's Communication/Plan
-
Discharge today if she continues to tolerate solids for lunch
Follow-up with Dr. Ponce for biopsy results
Assessment / Plan
Assessment / Plan
HPI: 69-year-old female with no significant past medical history who presented to [facility] ED for evaluation at referral of primary care provider. Patient reports having RUQ abdominal pain intermittently for the past several weeks. She was sent for an
out patient ultrasound that was completed this morning. Patients primary care provider called and informed her to go to ED for evaluation and treatment as US suspected choledocholithiasis in the common bile duct. Patient reports primary notified her
of results and they referred her to go to ED because she had observed decolorization in whites of her eyes and very yellow urine post US in morning. Patient denies fever, chills, cough, shortness of breath, chest pain, nausea, vomiting,
constipation, diarrhea or urinary symptoms.
#Hyperbilirubinemia/jaundice
#Transaminitis
#Dilated common bile duct
MRCP shows biliary stricture concerning for malignancy
Appreciate GI input
S/p ERCP 10/26 showing biliary stricture, sphincterotomy was performed, and 1 plastic biliary stent was placed into the common bile duct
US shows mass at the head of the pancreas concerning for malignancy
LFTs downtrending, CA 19�9 mildly elevated at 45 (normal < 35)
Follow up FNA biopsy results
#Post ERCP pancreatitis
Resolved of IV fluids
Tolerating low-cholesterol diet
DVT prophylaxis�SCDs
Full code
Updated on phone 10/29
Physical Exam
General: No acute distress
HEENT: Normocephalic, Atraumatic, EOMI, MMM, icteric sclerae
Respiratory: Clear to Auscultation bilaterally
Cardiac: Normal S1/S2, Regular Rate and Rhythm
GI: Soft, tender at the epigastrium, Nondistended, Normal Bowel Sounds
Extremities: No Clubbing, Cyanosis, or Edema
Neuro: Nonfocal/Grossly Intact
Psych: Calm, Cooperative
Derm: Jaundice
Anticipated Discharge: Today
Subjective/Interval History
-
Date of Service: October 29, 2024
Patient reports improvement of her lower abdominal gas pain. Her right upper quadrant and epigastric pain have mostly resolved. She is tolerating solids. No fever, no vomiting.
Objective Data
-
Labs:
Laboratory Results
10/29/24
06:34
Sodium 137
Potassium 3.9
Chloride 107
Carbon Dioxide 29
BUN 13
Creatinine 0.6
Glucose 73
Calcium 8.2 L
Total Bilirubin 2.1 H
AST 36
ALT 96 H
Alkaline Phosphatase 238 H
Vital Signs:
Vital Signs
Temp Pulse Resp BP Pulse Ox
98.3 F 75 16 129/66 95
10/29/24 07:10 10/29/24 07:10 10/29/24 07:10 10/29/24 07:10 10/29/24 07:10
I&O
10/28/24 10/29/24 10/30/24
06:59 06:59 06:59
Intake Total 600 / 600 2830 / 2830
Balance 600 / 600 2830 / 2830
--- NOTE | 2024-10-30 08:11 | VATNOTE ---
PCN asked to change IV tubing with next IV fluid bag change as tubing expires today.
[2024-10-30] MEDS: LR IV (10:29)
--- NOTE | 2024-10-30 11:30 | W.PN.GI.CBS2 ---
Today's Communication / Plan
-
low fat diet
Assessment / Plan
-
10/26/24 ERCP - A single severe biliary stricture was found in the lower third of the main bile duct. The stricture was
indeterminate - The upper third of the main bile duct, middle third
of the main bile duct, left main hepatic duct, right main hepatic duct and common hepatic duct were
severely dilated. - A biliary sphincterotomy was performed.
- One plastic biliary stent was placed into the common bile duct.
- One plastic biliary stent was placed into the common bile duct.
-post ERCP pancreatitis
- constipation
PLAN:
- resolved pancreatitis (lipase normal, clinically stable)
- low fat diet
- Dr. Ponce to go over cytology results when back
Subjective
Subjective
Date of Service: October 30, 2024
Abdominal pain resolved. tolerated full liquids
Objective
Data Reviewed
Laboratory Data:
Laboratory Results
10/28/24 07:20
10/30/24 06:29
Laboratory Results
PT 13.4 Sec (11.4-14.6) 10/26/24 09:43
INR 0.98 10/26/24 09:43
Total Bilirubin 1.8 mg/dl (0.2-1.3) H 10/30/24 06:29
AST 25 U/L (14-36) 10/30/24 06:29
ALT 64 U/L (0-35) H 10/30/24 06:29
Alkaline Phosphatase 175 U/L (38-126) H 10/30/24 06:29
Lipase 252 U/L (23-300) 10/30/24 06:29
Vital Signs and I&O:
Vital Signs
Temp Pulse Resp BP Pulse Ox
98.8 F 86 16 101/57 92
10/30/24 07:30 10/30/24 07:30 10/30/24 07:30 10/30/24 07:30 10/30/24 08:04
I&O
10/29/24 10/30/24 10/31/24
06:59 06:59 06:59
Intake Total 2830 / 2830 4290 / 4290
Balance 2830 / 2830 4290 / 4290
Physical Exam
Physical Exam
GI: Soft, Non Distended and Non Tender
Neuro: Non Focal
[2024-10-30 12:03] VITALS: BP 124/69
--- NOTE | 2024-10-30 12:04 | CM ---
CM reviewed chart, patient seen bedside with nurse, for discharge today. IMM reviewed verbally, provided with copy, placed in chart. Patient confirms will transport home.
Plan; home no needs.
--- NOTE | 2024-10-30 12:59 | W.DCSUMMARY ---
Discharge Summary
Discharge Data
Date of Admission: 10/27/24
Date of Discharge: 10/30/24
-
Pending Results: Yes
Additional Pending Results:
FNA biopsy is pending.
Hospital Course
Discharge diagnosis:
Severe stricture in the bile duct
Possible mass in the pancreatic head
Postprocedure pancreatitis
Jaundice/hyperbilirubinemia
Transaminitis
Consults: GI
ERUS:
Impression: - There was no sign of significant pathology in the
genu of the pancreas, pancreatic body and pancreatic
tail.
- A possible mass was identified in the pancreatic
head. This was staged T2 Nx Mx by endosonographic
criteria. The staging applies if malignancy is
confirmed. Fine needle aspiration performed.
- There was dilation in the common bile duct which
measured up to 17 mm.
- Multiple stones were visualized endosonographically
in the likely cystic duct.
- Multiple stones were visualized endosonographically
in the gallbladder body.
- There was no sign of significant pathology in the
ampulla.
- There was no evidence of significant pathology in
the left lobe of the liver.
Abd MRI:
Severe intrahepatic and extrahepatic bile duct dilatation, and narrowing of the common bile duct at the level of the head of the pancreas most in keeping with a bile duct stricture. Concern for a malignant stricture with a region of ill-defined soft
tissue attenuation at the superior margin of the head of the pancreas measuring 2.4 x 2.1 cm suspicious for pancreatic adenocarcinoma. Recommend soft tissue sampling for more definitive characterization.
2.1 cm focus of intermediate signal in the central aspect of the medial left hepatic lobe. Possibly periportal edema or volume averaging, but a metastatic liver lesion or other neoplastic process such as a cholangiocarcinoma are not excluded.
Recommend continued attention on follow-up imaging and/or soft tissue sampling.
Cholelithiasis.
Procedures:
10/26/2024: ERCP
Impression: - A single severe biliary stricture was found in the
lower third of the main bile duct. The stricture was
indeterminate.
- The upper third of the main bile duct, middle third
of the main bile duct, left main hepatic duct, right
main hepatic duct and common hepatic duct were
severely dilated.
- A biliary sphincterotomy was performed.
- One plastic biliary stent was placed into the common
bile duct.
- One plastic biliary stent was placed into the common
bile duct.
Recommendation: - Return patient to [facility] for ongoing care.
- Clear liquid diet today.
- Check liver enzymes (AST, ALT, alkaline phosphatase,
bilirubin) tomorrow.
- Return to my office in 2 weeks.
Hospital course:
69-year-old female with no significant past medical history who presented with jaundice, hyperbilirubinemia, and elevated LFTs. She had an abdominal MRI which showed bile duct stricture, concerning for malignancy. She was seen in conjunction with
GI, and underwent ERCP with sphincterotomy, and placement of a plastic biliary stent into the common bile duct. Ultrasound shows possible mass in the pancreatic head. Patient's CA 19�9 was mildly elevated at 45. FNA biopsy is pending.
Patient had post ERCP pancreatitis. She was treated with bowel rest, IV fluids, and antiemetics. Her pancreatitis resolved. She tolerated a low-fat, low-cholesterol diet. She is medically stable and cleared by GI for discharge. She needs to
follow-up with GI in the office for her biopsy results.
Disposition: Home self-care
Discharge planning: Required 33 minutes
Discharge Plan
-
Patient Disposition: Home (Routine Discharge)
Discharge Diagnosis/Procedures: Jaundice, biliary stricture, lesion at the head of the pancreas, post ERCP pancreatitis
Condition: Good
Diet: Low Fat and Low Cholesterol
Activity: As tolerated
Driving Restrictions: As prior to admission
Activity Restrictions/Additional Instructions:
Please follow-up with your PCP in less than 1 week, and GI in the office as directed.
Referrals:
Garcia Marrufo PA-C [Family Provider, Family Practice] - in less than 1 week
Oziel Ponce MD [Active, Gastroenterology]
Referral Note: call GI office to arrange follow up 2-4 weeks [phone]. Call in 1 week to review EUS biopsy
Prescriptions:
New
polyethylene glycol 3350 17 gram/dose powder
17 g PO DAILY PRN (Reason: Constipation) Qty: 510 0RF
Discharge Orders:
Discharge Patient (As Directed); Ordered 10/30/24
Ordered By: Moises Mcmillan
Discharge Date and Time
Print Language: LAO
== END 2024-10-30 13:11 | disposition home or self-care (01) | DRG 435 ==
LOC: 4 WEST ACU 10:37
PROVIDERS: Emergency Medicine; Internal Medicine Gastroenterology; Nurse Practitioner Adult Health; Nurse Practitioner Family; ADMITTING PHYSICIAN Internal Medicine; ATTENDING PHYSICIAN Family Medicine; EMERGENCY PHYSICIAN Student in an Organized Health Care Education/Training Program; FAMILY PHYSICIAN Physician Assistant Medical; OTHER PHYSICIAN Internal Medicine Gastroenterology
PROC: 0F798DZ Dilation of Common Bile Duct with Intraluminal Device, Via Natural or Artificial Opening Endoscopic (ICD-10-PCS; 2024-10-26)
PROC: 0FBG8ZX Excision of Pancreas, Via Natural or Artificial Opening Endoscopic, Diagnostic (ICD-10-PCS; 2024-10-26)
DX: C25.0 Malignant neoplasm of head of pancreas (principal); K85.90 Acute pancreatitis without necrosis or infection, unspecified; K80.71 Calculus of gallbladder and bile duct without cholecystitis with obstruction; K86.89 Other specified diseases of pancreas
CPT/HCPCS: 88173; 88305; 74183; 74330; 76000; 76700; 76770; 80053; 81003; 82248; 83690; 85025; 85027; 85610; 86301; 99284; A9575; C1769; C2625

== ENCOUNTER 2024-11-02 19:11 | Emergency (ER) | payer MEDICARE, OTHER, SELFPAY ==
[2024-11-02 19:14] VITALS: BP 121/69
[2024-11-02 19:33] LABS: % Basophils 0.3 % (0-2); % Eosinophils 2.1 % (0-6); % Lymphocytes 19.2 % (20.5-51.1); % Monocytes 11.3 % (1.7-9.3); % Neutrophils 66.1 % (42.2-75.2); Absolute Eosinophils 0.2 10^3/uL (0-0.7); Absolute Immature Granulocytes 0.1 10^3/uL (0-0.05); Absolute Lymphocytes 1.9 10^3/uL (1.2-3.4); Absolute Monocytes 1.1 10^3/uL (0.1-0.6); Absolute Neutrophils 6.6 10^3/uL (1.4-6.5); Hematocrit 32.3 % (37.0-47.0); Mean Corp Hgb Conc. 34.1 g/dL (33.0-37.0); Mean Corpuscular Hgb 29.9 pg (27.0-31.0); Mean Corpuscular Volume 87.8 fL (81.0-99.0); Mean Platelet Volume 9.6 fL (7.4-10.4); Nucleated Red Blood Cells % 0 %; Platelet Count 339 10^3/uL (130-400); Red Blood Cell Count 3.68 10^6/uL (4.20-5.40); Red Cell Dist. Width 14.5 % (11.5-14.5)
[2024-11-02 19:53] LABS: ALT (SGPT) 48 U/L (0-35); AST (SGOT) 31 U/L (14-36); Albumin 2.9 g/dl (3.5-5.0); Alkaline Phosphatase 178 U/L (38-126); Blood Urea Nitrogen 9 mg/dl (7-17); Calcium 8.7 mg/dl (8.4-10.2); Carbon Dioxide 31 mmol/L (22-30); Chloride 102 mmol/L (98-107); Glucose 93 mg/dl (70-99); Potassium 4.1 mmol/L (3.5-5.1); Sodium 136 mmol/L (135-145); Total Bilirubin 1.1 mg/dl (0.2-1.3); Total Protein 5.5 g/dl (6.3-8.2); eGFR > 60.00
[2024-11-02 20:14] LABS: NT-proBNP 844 pg/ml
[2024-11-02 20:45] VITALS: BMI 24.6
--- NOTE | 2024-11-02 21:44 | ED.GENMED ---
History of Present Illness
General
Chief Complaint: Swelling
Time Seen by Provider: 11/02/24 21:44
History of Present Illness
History of Present Illness:
REVIEW OF OLD RECORDS
The patient was admitted to the hospital up until 3 days ago for 3 days. She did have a fine-needle aspiration of possible mass at the pancreatic head and there was dilatation of the common bile duct up to 17 mm. A biliary sphincterotomy was
performed and biliary stent was placed in the common bile duct. The pathology report showed moderately differentiated adenocarcinoma of the pancreas.
Note:
CHIEF COMPLAINT(S)
Severe fluid retention leading to a 22-pound weight gain, following recent hospitalization.
HISTORY OF PRESENT ILLNESS
The patient is a 69-year-old female who presents with significant fluid retention, having gained 22 pounds following a recent hospitalization during which she developed pancreatitis. Upon admittance to the hospital, the patient received an
intravenous line with normal fluids and was later administered a high volume of fluids as part of the treatment protocol for pancreatitis. Subsequently, she experienced substantial weight gain primarily attributed to fluid retention. The patient
reports that this excessive fluid retention has made it difficult for her to fit into her clothing and that her weight increased notably over the past week. Though the patient denies severe shortness of breath, she conveys a sense of fullness in her
extremities and abdomen. Blood work conducted reveals overall stability, but fluid retention is confirmed as a significant issue. During the visit, she declined previous recommendations for oral diuretics. She considers intravenous diuretics as a
treatment option to relieve the extensive fluid load.
EXTERNAL RECORDS REVIEWED
The patients previous imaging and blood work results have been reviewed to assess and confirm the extent of fluid retention and rule out other potential causes.
PHYSICAL EXAM
- Inspection reveals mild fluid accumulation around the torso and extremities.
- Auscultation indicates no significant fluid sounds in the lungs.
- The patients abdomen feels distended but not unusually tense.
- General: Well appearing in no distress
- HEENT: Moist oral mucosa
- Cardiovascular: No murmurs, normal heart rate, regular rhythm, No chest wall tenderness
- Pulmonary: No respiratory distress, breath sounds are clear and equal
- Abdomen: Soft with no peritoneal signs, no tenderness
- Neurologic: Excellent strength all extremities, no coordination deficits
- Psychiatric: Appropriate mental status, normal insight and judgement
- Extremities: Nontender, 2+ bilateral edema, moves all extremities equally
- Skin: No rash, no lesions
PROBLEM LIST
- Acute Problem: Severe fluid retention following treatment for pancreatitis
PLAN
- Administer intravenous Lasix in the emergency department to initiate fluid reduction.
- Consider prescribing oral Lasix for a short duration post-discharge to manage fluid retention if necessary.
- Further review of patient records to confirm findings and adjust treatment as appropriate based on historical data.
DIFFERENTIAL DIAGNOSIS
The Differential Diagnosis includes, in no particular order and is not limited to:
1. Congestive heart failure
2. Renal failure
3. Cirrhosis with ascites
4. Nephrotic syndrome
5. Deep vein thrombosis
6. Lymphedema
7. Hypothyroidism
8. Venous insufficiency
9. Adrenal insufficiency
10. Drug-induced edema (such as calcium channel blockers)
CARE-UPDATE
11/02/24 - 22:07
A chest x-ray has been ordered to check for potential fluid buildup in the lungs. The patients BNP level is approximately 800, which is considered somewhat elevated but does not confirm heart failure. An aortic ultrasound conducted previously showed
no significant issues, and an abdominal ultrasound demonstrated only a trace amount of ascites, not considered significant. The patient reports new or worsening swelling since the initial ultrasound, so a repeat abdominal ultrasound has been
scheduled for tonight alongside the chest x-ray to further assess any abdominal fluid accumulation.
CARE-UPDATE
11/02/24 - 23:31
Patient exhibits mild pleural effusion and moderate ascites on imaging, slightly worse than previous assessments. Lasix was administered, and the patient reported diuresis. The treatment plan includes continuing Lasix for further diuresis to reduce
fluid retention and weight. No urgent cardiac involvement is suspected despite elevated BNP levels; therefore, cardiology follow-up is not prioritized. The GI store sales consultant, Dr. Hilario, will be notified to ensure no further actions are needed from the
gastroenterology standpoint. Anticipating discharge with a prescription for Lasix for a few days to manage fluid retention. Follow-up with the primary care physician is advised.
Discussed case with Dr. Perez agrees with plan of Lasix over the next few days. She will follow-up with her primary care doctor as well.
Past History
Past History
ED Past Medical History: None
ED Past Surgical History: Orthopedic (Left hip replacement)
Social History
Personal:
Phy Exam
Physical Exam
Physical Exam:
See HPI
Scores
Heart Failure Risk
Heart Failure Risk Score: Not Applicable
Course
Orders/Labs/Results
Orders:
Orders
11/02/24 19:18
Electrocardiogram (*1) Urgent
Reason for Study: Other
Other Reason for Exam: swelling
11/02/24 19:19
EKG- Treatment ONCE
11/02/24 19:24
Complete Blood Count/With Diff Urgent
Comprehensive Metabolic Panel Urgent
Lipase Urgent
Comment: ADD ON
NT-proBNP Urgent
11/02/24 21:46
Add On- LAB Urgent
Tests Added?: lipase
11/02/24 22:03
Furosemide [Lasix] 40 mg IV NOW STA
11/02/24 22:04
US Abdomen Limited Urgent
Reason For Exam: eval for ascites; recent biliary stent; swelling
11/02/24 22:05
CR Chest - 2 Views Urgent
Comment:
Reason For Exam: edema
Abnormal Lab Results
11/02/24
19:24
RBC 3.68 L 10^6/uL
(4.20-5.40)
Hgb 11.0 L g/dL
(12.0-16.0)
Hct 32.3 L %
(37.0-47.0)
Abs Immat Gran (auto) 0.1 H 10^3/uL
(0-0.05)
Absolute Neuts (auto) 6.6 H 10^3/uL
(1.4-6.5)
Absolute Monos (auto) 1.1 H 10^3/uL
(0.1-0.6)
Immature Gran % 1.0 H %
(0-0.5)
Lymphocytes % 19.2 L %
(20.5-51.1)
Monocytes % 11.3 H %
(1.7-9.3)
Carbon Dioxide 31 H mmol/L
(22-30)
ALT 48 H U/L
(0-35)
Alkaline Phosphatase 178 H U/L
(38-126)
Total Protein 5.5 L g/dl
(6.3-8.2)
Albumin 2.9 L g/dl
(3.5-5.0)
11/02/24 19:24
11/02/24 19:24
Vital Signs
Initial and Last Documented VS:
Initial Vital Signs
Temp Pulse Resp BP Pulse Ox
36.6 C 90 18 121/69 98
11/02/24 19:14 11/02/24 19:14 11/02/24 19:14 11/02/24 19:14 11/02/24 19:14
Last Documented Vital Signs
Temp Pulse Resp BP Pulse Ox
36.6 C 90 20 123/62 96
11/02/24 19:14 11/02/24 23:00 11/02/24 23:00 11/02/24 22:59 11/02/24 21:45
*Pulse Oximetry
Patient hypoxic: no (96% on room air)
*Critical Care Note
Total Time (30-74mins, 75-104mins- exclusive of procedures): Not Applicable
ED Attending Note
-
Portions of this chart may have been created with voice recognition software.� Occasional wrong word or��sound alike� substitutions may have occurred due to the inherent limitations of voice recognition software.
Discharge Plan
Departure
Prescriptions:
No Action
polyethylene glycol 3350 17 gram/dose powder
17 g PO DAILY PRN (Reason: Constipation) Qty: 510 0RF
Referrals:
Garcia Marrufo PA-C [Family Provider, Family Practice]
Interventions
Interventions:
*General Assessment Last Done: 11/02/24 20:45
*Neglect/Abuse Screening Last Done: 11/02/24 20:45
*ED- Fall Risk Assessment Last Done: 11/02/24 20:45
*ED COVID-19 Vaccine History Last Done: 11/02/24 20:45
ED- Cardiac Assessment Last Done: 11/02/24 20:45
ED- Pulmonary Assessment Last Done: 11/02/24 20:45
ED-Skin Assessment Last Done: 11/02/24 20:45
Discharge Date and Time
Print Language: DJIBOUTIAN
[2024-11-02 22:17] LABS: Lipase 134 U/L (23-300)
[2024-11-02] MEDS: LASIX 40 MG IV (22:58)
[2024-11-02 22:59] VITALS: BP 123/62
== END 2024-11-03 00:03 | disposition home or self-care (01) ==
LOC: EMR 19:11
PROVIDERS: Emergency Medicine; EMERGENCY PHYSICIAN Emergency Medicine; FAMILY PHYSICIAN Physician Assistant Medical
DX: R18.8 Other ascites (principal); C25.9 Malignant neoplasm of pancreas, unspecified; J90 Pleural effusion, not elsewhere classified
CPT/HCPCS: 96374; 99285; 71046; 76705; 80053; 83690; 83880; 85025; 93005

== ENCOUNTER 2024-11-19 22:02 | Inpatient (IN) | payer MEDICARE, OTHER, SELFPAY ==
[2024-11-19 16:30] VITALS: BP 116/71
[2024-11-19 16:54] LABS: Hematocrit 35.1 % (37.0-47.0); Hemoglobin 12.1 g/dL (12.0-16.0); Mean Corp Hgb Conc. 34.5 g/dL (33.0-37.0); Mean Corpuscular Volume 86.0 fL (81.0-99.0); Nucleated Red Blood Cells % 0 %; Platelet Count 291 10^3/uL (130-400); Red Cell Dist. Width 14.5 % (11.5-14.5)
[2024-11-19 17:09] LABS: ALT (SGPT) 18 U/L (0-35); AST (SGOT) 22 U/L (14-36); Albumin 3.7 g/dl (3.5-5.0); Alkaline Phosphatase 134 U/L (38-126); Blood Urea Nitrogen 20 mg/dl (7-17); Calcium 9.0 mg/dl (8.4-10.2); Carbon Dioxide 23 mmol/L (22-30); Chloride 102 mmol/L (98-107); Glucose 106 mg/dl (70-99); Potassium 4.1 mmol/L (3.5-5.1); Sodium 130 mmol/L (135-145); Total Protein 6.5 g/dl (6.3-8.2); eGFR > 60.00
[2024-11-19 17:10] LABS: COVID-19 Antigen Negative (Negative)
--- NOTE | 2024-11-19 17:12 | ED.GENMED ---
History of Present Illness
General
Chief Complaint: Fever
Source: patient, records and spouse
Exam Limitations: none
Time Seen by Provider: 11/19/24 17:09
Nursing documentation reviewed up to this point in time: agreed with
History of Present Illness
History of Present Illness:
69-year-old female with recently diagnosed pancreatic cancer presents to the emergency department with her for evaluation of fever. Patient was admitted to this hospital 10/27 until 10/30�presented with newly discovered pancreatic cancer,
jaundice, pancreatitis. She had ERCP and biliary stent on 10/26. She unfortunately had to return to the emergency room 11/02 due to weight gain and edema and was treated with Lasix�fortunately she is back to her normal weight and has not had any edema
since then. She returns today to the emergency room for fever. Patient reports she was having chills overnight and today they continued and she checked her temperature and it was elevated with a peak at 103 �F. Patient called GI (spoke with
Tasia) who referred her to the emergency room. Aside from fever patient reports that she has had persistent dull aching in the epigastrium however she says this has been a consistent symptom since her initial hospitalization and is not necessarily
worse than usual. She has not had any nausea or vomiting. She has had some diarrhea recently but today actually had her first formed stool in some time. She has had a mild nagging cough nonproductive. No shortness of breath. No URI symptoms.
Her has been sick recently with pneumonia. She denies any urinary symptoms�no dysuria or hematuria, change in frequency. She denies any other complaints.
Past History
Past History
ED Past Medical History: None
ED Past Surgical History: Orthopedic (Left hip replacement)
Social History
Personal:
Review of Systems
Review of Systems
All Other Systems: ROS reviewed and negative except as documented in HPI and ROS
Constitutional: Reports fever, fatigue and chills
EENT: Denies sore throat or runny nose
Respiratory: Reports cough; Denies trouble breathing
Cardiac: Denies chest pain or palpitations
ABD/GI: Reports abdominal pain and diarrhea; Denies nausea or vomiting
: Denies dysuria, frequency or flank pain
Skin: Denies rash
Neurological: Denies headache
Phy Exam
Physical Exam
Physical Exam:
General: Awake, alert, oriented x3; no acute distress
Head: Normocephalic, atraumatic
Eyes: Conjunctiva normal, sclera anicteric
Throat: Airway intact, handling secretions
Neck: Trachea midline, supple without meningismus
Lungs: Clear to auscultation bilaterally, no wheezing, rales, rhonchi
Heart: Tachycardia with regular rhythm, no murmurs, gallops, or rubs
Abd: Soft, non distended, mildly tender in epigastrium
Neuro: No gross deficits
Skin: No jaundice, no rash
Extremities: Warm and well-perfused
Scores
Heart Failure Risk
Heart Failure Risk Score: Not Applicable
Heart Score for Chest Pain Patients
STEMI patient?: Not applicable
Withdrawal Assessment of Alcohol
Withdrawal Assessment Completed?: Not applicable
Sepsis
Sepsis Screening
Sepsis Assessment: Sepsis
Sepsis Screen
Sepsis Screen: Sepsis
Date: 11/19/24
Time: 20:08
Course
Orders/Labs/Results
Orders:
Orders
11/19/24 16:34
Cardiac Monitoring- Treatment ONCE
IV Insert/Care/Rem.- Treatment PRN
O2 Therapy [RESP] Urgent
Titrate/Wean O2 to maintain O2 sat greater than (%): 93
Special Instructions: TO MAINTAIN CONTINUOUS O2 SATS > OR = 93%
Pulse Ox/cont/shift [RESP] Urgent
Quantity: 1
Special Instructions: CONTINUOUS
11/19/24 16:45
COVID-19 Antigen Urgent
Source: Nasal Swab
Complete Blood Count/With Diff Urgent
Comprehensive Metabolic Panel Urgent
Lactic Acid Q4H
Comment: ON ICE, CANCEL 2ND ORDER IF FIRST LACTIC ACID LEVEL <2
Lipase Urgent
Comment: ADD ON
Blood Culture Q20M
JUSTIN Source: Blood/Venous
Specimen Description:
Comment: Urgent from separate sites. If patient screens positive for possible sepsis
Influenza A+B Rapid Molecular Urgent
JUSTIN Source: Nasal Swab
Specimen Description:
11/19/24 17:10
CT Abd/pelvis W Iv Cont Urgent
Comment:
Reason For Exam: fever
Acetaminophen [Tylenol] 1,000 mg PO NOW STA
CR Chest - 2 Views Urgent
Comment:
Reason For Exam: fever
11/19/24 17:11
0.9% Sodium Chloride 1000 ml [Nss] 1,000 ml IV BOLUS
11/19/24 17:12
Add On- LAB Urgent
Tests Added?: lipase
11/19/24 18:40
Urinalysis Reflex To Culture Urgent
Date Specimen was Collected: 11/19/24
Time Specimen was Collected: 18:18
11/19/24 20:07
Piperacillin/Tazo 3.375 Gram [Zosyn] 3.375 gram in 50 ml IV NOW
Vancomycin [Vancocin] 1,500 mg 0.9% Sodium Chloride 500 ml [Nss] 500 ml IV NOW
Abnormal Lab Results
11/19/24
16:45
WBC 10.9 H 10^3/uL
(4.8-10.8)
RBC 4.08 L 10^6/uL
(4.20-5.40)
Hct 35.1 L %
(37.0-47.0)
Absolute Neuts (auto) 8.1 H 10^3/uL
(1.4-6.5)
Absolute Monos (auto) 0.9 H 10^3/uL
(0.1-0.6)
Lymphocytes % 13.5 L %
(20.5-51.1)
Sodium 130 L mmol/L
(135-145)
BUN 20 H mg/dl
(7-17)
Glucose 106 H mg/dl
(70-99)
Alkaline Phosphatase 134 H U/L
(38-126)
11/19/24 16:45
11/19/24 16:45
Vital Signs
Initial and Last Documented VS:
Initial Vital Signs
Temp Pulse Resp BP Pulse Ox
39.3 C H 107 18 116/71 96
11/19/24 16:30 11/19/24 16:30 11/19/24 16:30 11/19/24 16:30 11/19/24 16:30
Last Documented Vital Signs
Temp Pulse Resp BP Pulse Ox
37.9 C 109 18 94/56 99
11/19/24 18:22 11/19/24 18:22 11/19/24 16:30 11/19/24 18:22 11/19/24 18:22
MDM/Problems Addressed
Differential Diagnosis Includes:
Viral syndrome, pneumonia, UTI, intra-abdominal infection (cholecystitis, pancreatitis, etc)
MDM/Problems Addressed:
69-year-old female who had recently diagnosed pancreatic cancer and is status post recent biliary stent in early October presents for fever. She is tachycardic and febrile here, no tachypnea or hypoxia, normotensive. Physical exam as above. Plan to
place an IV check labs including a CBC and CMP, lactate and blood cultures. Send viral swabs. Will check urinalysis. Check chest x-ray. Will check CT of the abdomen pelvis. Will treat fever and provide some fluids. Will monitor closely
reassess after the above.
Labs reviewed: CBC shows leukocytosis to 10.9. CMP shows marginal hyponatremia no other clinically significant abnormalities. Viral swabs are negative. Awaiting rest of workup.
Chest x-ray does show mild pneumonitis nonspecific�certainly this could potentially be source for her fever. Her viral swabs have been negative. CT abdomen pelvis shows distended gallbladder but no dilation of the bile ducts around the stent,
question mild pancreatitis but lipase is normal. No other acute pathology noted. Certainly at risk for cholecystitis given her history�will cover with broad-spectrum antibiotics for pulmonary and intra-abdominal infection. Cultures have been sent
off. Will admit to the hospitalist for continued treatment and diagnostic workup. Case discussed with hospitalist for admission.
Chronic conditions affecting care:
Pancreatic cancer
*Radiology
Radiology exam reviewed: radiology read reviewed
*Pulse Oximetry
SaO2: 96
Oxygen Mode of Delivery: Room air
Patient hypoxic: no (96%)
*Critical Care Note
Total Time (30-74mins, 75-104mins- exclusive of procedures): Not Applicable
Data Reviewed
Review of Other/Old Records Reveals: Labs and Records
Source: patient and records
Patient Management
Discussion with other providers: Hospitalist (Discussed with hospitalist) and [employer] T[employer] Operator (Discussed with gastroenterology)
Escalation/DeEscalation of care consider admission/obs:
Admission indicated
ED Attending Note
-
Portions of this chart may have been created with voice recognition software.� Occasional wrong word or��sound alike� substitutions may have occurred due to the inherent limitations of voice recognition software.
Discharge Plan
Departure
Prescriptions:
No Action
polyethylene glycol 3350 17 gram/dose powder
17 g PO DAILY PRN (Reason: Constipation) Qty: 510 0RF
furosemide [Lasix] 40 mg tablet
40 mg PO DAILY Qty: 4 0RF
multivitamin Tablet
1 tab PO DAILY
calcium carbonate-vitamin D3 [Calcium + D] 600 mg-5 mcg (200 unit) Tablet
1 tab PO DAILY
Vitamin C 100 mg Tablet
100 mg PO DAILY
cholecalciferol (vitamin D3) [Vitamin D3] 25 mcg (1,000 unit) Capsule
25 mcg PO DAILY
Referrals:
Garcia Marrufo PA-C [Family Provider, Family Practice]
Interventions
Interventions:
*Risk Screen - Suicide Last Done: 11/19/24 16:30
*General Assessment Last Done: 11/19/24 18:46
*Neglect/Abuse Screening Last Done: 11/19/24 16:30
*ED- Fall Risk Assessment Last Done: 11/19/24 18:46
ED- Neurological Assessment Last Done: 11/19/24 18:46
Discharge Date and Time
Print Language: VINCENTIAN
[2024-11-19 17:33] LABS: Lipase 130 U/L (23-300)
[2024-11-19] MEDS: TYLENOL 1000 MG PO (17:57)
[2024-11-19] MEDS: NSS 1000 IV (17:57)
[2024-11-19 18:22] VITALS: BP 94/56
[2024-11-19 18:46] LABS: Urine Character Clear (Clear)
[2024-11-19] MEDS: ZOSYN 50 IV (20:16)
--- NOTE | 2024-11-19 20:18 | HPS.HSE ---
Addendum entered and electronically signed by Saroj Fuentes DO 11/19/24 22:10:
Patient seen and examined independently. Agree with findings and plan as set forth by ISABELLA Brasher.
patient is a 69y F with recent diagnosis of pancreatic cancer, s/p biliary stent placement 10/26/24 who presents to ED complaining of fever and chills at home. Patient reports mild, hacking cough that has been present since her priro
hospitalization. No significant dyspnea, mucus production, etc. Developed chills last PM and had temp at home to 103 max. Spoke with GI who advised her to return to the ED.
Has persistent abdominal discomfort - but no change from prior. No N/V.
was recently ill with pneumonia.
Patient not yet on active treatment for pancreatic cancer. Tentatively scheduled for port placement / chemo initiation in early November.
Ass:
Pneumonitis / Multifocal Pneumonia
Sepsis secondary to the above
Pancreatic Cancer s/p Biliary Stent
Cholelithiasis
Plan:
Admit for further evaluation and treatment.
Patient presents with fever, tachycardia and CXR showing patchy, bilateral opacities.
Continue Zosyn for coverage of pulmonary +/- biliary process.
Follow fever curve. Follow-up culture data.
Monitor for clinical improvement.
GI consulted for additional recommendations.
Original Note:
Family Physician
-
Family Physician: Garcia Marrufo
Chief Complaint
-
fever
History of Present Illness
Patients a 69-year-old female with past medical history recently diagnosed pancreatic cancer who presented to [facility] ED for evaluation of fever. Patient was admitted to this hospital 10/27 until 10/30�presented with newly discovered pancreatic cancer,
jaundice, pancreatitis. She had ERCP and biliary stent on 10/26. She unfortunately had to return to the emergency room 11/02 due to weight gain and edema and was treated with Lasix�fortunately she is back to her normal weight and has not had any edema
since then. She returns today to the emergency room for fever. Patient reports she was having chills overnight and today they continued and she checked her temperature and it was elevated with a peak at 103 �F. Patient called GI (spoke with
Tasia) who referred her to the emergency room. Aside from fever patient reports that she has had persistent dull aching in the epigastrium however she says this has been a consistent symptom since her initial hospitalization and is not necessarily
worse than usual. She has not had any nausea or vomiting. She has had some loose stools recently but today actually had her first formed stool in some time. She has had a mild nagging cough nonproductive since hospital discharge. No shortness of
breath. No URI symptoms. Her was recently sick with pneumonia. She denies any urinary symptoms�no dysuria or hematuria, change in frequency. She denies any other complaints.
Medical History
Past Medical History
Past Medical History: Reports Other
Additional Past Medical History:
pancreatic cancer
Past Surgical History: Reports Other
Additional Past Surgical History:
left hip replacement
appendectomy
Social History
Tobacco: Non-smoker
Alcohol: Occasional (rare)
Drug: None
Personal:
Living: With Family
Employment: Retired
Family History
Family History: Other (Father: , [place], [place])
Allergies / Home Medications
Allergies reflects when Allergies were last updated in [employer].
Home Medications with original date entered in [employer]
Allergy/Medication List:
Allergies
Allergy/AdvReac Type Severity Reaction Status Date / Time
No Known Allergies Allergy Verified 11/19/24 16:30
Home Medications
ascorbic acid (vitamin C) 100 mg tablet (Vitamin C) 100 mg PO DAILY 11/17/24
calcium 600 mg (as carbonate)-vitamin D3 5 mcg (200 unit) tablet 1 tab PO DAILY 11/17/24
cholecalciferol (vitamin D3) 25 mcg (1,000 unit) capsule (Vitamin D3) 25 mcg PO DAILY 11/17/24
multivitamin 1 tab PO DAILY 11/17/24
Review of Systems
-
History Source: Patient
Constitutional: Reports Fever, Fatigue and Chills
EENT: Reports No Symptoms
Respiratory: Reports Cough (dry cough ); Denies Trouble Breathing
Cardiac: Reports No Symptoms
Abdomen/GI: Reports Abdominal Pain (mild discomfort ) and Diarrhea (loose stools until today first formed stool since hospital discharge )
: Reports No Symptoms
Musculoskeletal: Reports No Symptoms
Skin: Reports No Symptoms
Neurological: Reports No Symptoms
Endocrine: Reports No Symptoms
Hematologic/Lymphatic: Reports No Symptoms
Psych: Reports No Symptoms
Physical Exam
Vital Signs
Vital Signs
Temp Pulse Resp BP Pulse Ox
100.3 F 109 18 94/56 99
11/19/24 18:22 11/19/24 18:22 11/19/24 16:30 11/19/24 18:22 11/19/24 18:22
Physical Exam
General: Well Developed, Well Nourished, No Apparent Distress and Conversant
HEENT: NormoCephalic, Moist mucous membranes, Atraumatic, Nose Appears Normal and Ears Appear Normal
Respiratory: Clear; No Wheezes, Rales or Rhonchi
Cardiac: S1/S2, Regular Rhythm and Tachycardia; No Murmur, Rub or Gallop
GI: Soft, Non Distended and Normal Bowel Sounds
Rectal: Deferred by Provider
Genito-urinary: Deferred by me
Musculoskeletal: No Clubbing, No Cyanosis and No Edema
Skin: Warm and IV/Catheter Site; No Rash or Jaundice
Neuro: Awake, Alert, AO x 3 and Nonfocal/grossly intact
Psych: Calm and Intact Judgment/Insight
Laboratory Results
-
11/19/24 16:45
11/19/24 16:45
Laboratory Results
Lactic Acid 1.1 mmol/L (0.7-2.0) 11/19/24 16:45
Total Bilirubin 1.0 mg/dl (0.2-1.3) 11/19/24 16:45
AST 22 U/L (14-36) 11/19/24 16:45
ALT 18 U/L (0-35) 11/19/24 16:45
Alkaline Phosphatase 134 U/L (38-126) H 11/19/24 16:45
Lipase 130 U/L (23-300) 11/19/24 16:45
Data Reviewed
-
Diagnostic Radiology: Report Reviewed by me (CXR: Mild diffuse nonspecific pneumonitis in bilateral midlung zones and right lower lobe, without focal dense consolidation.)
CT Scan: Report Reviewed by me (Abd/Pel: Mild bibasilar groundglass opacities/pneumonitis, right greater than left. 1.7 cm subtle low-attenuation intrahepatic focus not apparent on prior MRI and a space-occupying lesion. Cannot exclude the
possibility of interval development of a small metastatic lesion. Multifocal patchy ground)
Lab Data: Labs Reviewed by me (WBC 10.9, Neut 73.6, Na+ 130, )
Impression/Plan
-
IMPRESSION/PLAN:
#sepsis 2/2 pneumonitis vs. cholecystitis
WBC 10.9, Neut 73.6, Na+ 130
CXR: Mild diffuse nonspecific pneumonitis in bilateral midlung zones and right lower lobe, without focal dense consolidation.
Abd/Pel CT: Mild bibasilar groundglass opacities/pneumonitis, right greater than left.
1.7 cm subtle low-attenuation intrahepatic focus not apparent on prior MRI and a space-occupying lesion. Cannot exclude the possibility of interval development of a small metastatic lesion.
Multifocal patchy groundglass opacities are noted in the lower lung zones, right greater than left. Nonspecific pneumonitis. No pleural or pericardial effusion.
Stable cholelithiasis with gallbladder distention.
Biliary stents in place. Stable distention of the common hepatic duct measuring up to 1.3 cm no common bile duct dilatation surrounding the biliary stents. Trace pneumobilia.
Mild hazy attenuation of the peripancreatic fat. This could suggest mild pancreatitis.
Indistinct low-attenuation mass at the superior margin of the pancreatic head, which corresponds to a mass seen on MRI, and appears to contribute to focal high-grade stenosis of the mid
portal vein. The splenic vein and superior mesenteric vein are patent.
Mild to moderate colonic fecal burden. No bowel obstruction.
- Admit to med/surg
- IV antibiotics Zosyn
- supportive care
- Consult GI
- consider Chest CT if no improvement
#pancreatic cancer
recent diagnosis, following with [facility]. Dr. Oro
chemo scheduled to start November 30
port placement scheduled for November 21
Code status: full code
DVT prophylaxis: Lovenox sq
[2024-11-19] MEDS: VANCOCIN 530 MG IV (21:25)
[2024-11-19 21:29] VITALS: BP 94/60
[2024-11-19 21:30] VITALS: BP 94/60
[2024-11-19 23:05] VITALS: BP 104/70; BMI 20.2
[2024-11-20] MEDS: ZOSYN 50 IV ×4 (02:12→19:48)
[2024-11-20 05:27] LABS: Hematocrit 31.3 % (37.0-47.0); Hemoglobin 10.5 g/dL (12.0-16.0); Mean Corp Hgb Conc. 33.5 g/dL (33.0-37.0); Mean Corpuscular Volume 86.9 fL (81.0-99.0); Platelet Count 226 10^3/uL (130-400); Red Cell Dist. Width 14.6 % (11.5-14.5)
[2024-11-20 05:50] LABS: Blood Urea Nitrogen 15 mg/dl (7-17); Calcium 8.2 mg/dl (8.4-10.2); Carbon Dioxide 24 mmol/L (22-30); Chloride 107 mmol/L (98-107); Estimated Creatinine Clearance 68 ml/min; Glucose 102 mg/dl (70-99); Potassium 4.0 mmol/L (3.5-5.1); Sodium 136 mmol/L (135-145); eGFR > 60.00
[2024-11-20 07:15] VITALS: BP 104/56
--- NOTE | 2024-11-20 07:32 | CON.GI ---
Consultation
-
Date/Time Consultation Requested: 11/19/2024
Date/Time Consultation Performed: 11/20/2024
Requesting Provider: Emergency room
Performing Provider: Dr. Dozier
Reason for Consultation: Fever in the setting of recent biliary stenting
Medical History
Chief Complaint / HPI
Chief Complaint: Fever
History of Present Illness:
Luzma is a 69-year-old female presents with fever. She had no significant past medical history who presented in early October 2024 with jaundice and abnormal LFTs found to have an abdominal MRI with a biliary stricture that led to an EUS finding of
pancreatic head adenocarcinoma and underwent 2 plastic stents placed in the common bile duct to alleviate the stricture and allow flow. She has had no increased pain at home just a dull ache that she has been experiencing but developed fevers up to
103 and she came to the emergency room after discussion with me over the phone on 11/19/2024. She denies any nausea or vomiting. Has had some diarrhea recently but actually had formed stool yesterday. She has had a mild nonproductive cough for 3
wks with no shortness of breath. Her recently had pneumonia. Denies any urinary symptoms, no rash, no swelling. Liver enzymes showed a normal total bilirubin of 1.0, AST 22, ALT 18, alkaline phosphatase 134, lipase 130 her white count was
10.9, BUN 20, creatinine 0.7, sodium 130 mildly tachycardic in the emergency room blood pressure 94/56 that responded to fluids. She underwent chest x-ray which showed mild pneumonitis. Flu swabs negative, blood culture sent and placed on empiric
antibiotics with Zosyn and [address] scan on 11/19/2024 with IV contrast liver shows a low-attenuation 1.7 cm lesion is not seen on MRI, gallbladder shows cholelithiasis gallbladder distention similar to prior exam. Biliary stents
are in place with stable distention of the common hepatic duct measuring 1.3 cm with no common bile duct dilation surrounding the biliary stents. Trace pneumobilia. No pancreatic ductal dilatation. Mild haziness of the peripancreatic fat
suggesting mild pancreatitis. Focal high-grade stenosis of the mid portal vein. Splenic and superior mesenteric vein are patent. Normal-sized spleen.
Last night she was afebrile 98.6 and today 99.6
Past Medical History
Past Medical History: Other (Newly diagnosed pancreatic cancer)
Past Surgical History: Other (Left hip replacement, appendectomy)
Social History
Tobacco: Non-Smoker
Alcohol: Occasional
Drug: None
Personal:
Living: With Family
Employment: Retired
Family History
Family History: CAD
Allergies / Home Medications
Allergy/AdvReac Type Severity Reaction Status Date / Time
No Known Allergies Allergy Verified 11/19/24 16:30
�Medication �Instructions �Recorded
ascorbic acid (vitamin C) 100 mg 100 mg PO DAILY 11/17/24
tablet (Vitamin C)
calcium 600 mg (as 1 tab PO DAILY 11/17/24
carbonate)-vitamin D3 5 mcg (200
unit) tablet
cholecalciferol (vitamin D3) 25 25 mcg PO DAILY 11/17/24
mcg (1,000 unit) capsule (Vitamin
D3)
multivitamin 1 tab PO DAILY 11/17/24
Review of Systems
-
All other systems: A 12 pt ROS was Negative except as stated above in HPI
Vital Signs
Temp Pulse Resp BP Pulse Ox
98.6 F 97 17 104/70 96
11/19/24 23:05 11/19/24 23:05 11/19/24 23:05 11/19/24 23:05 11/19/24 23:05
Physical Exam
Exam
General: Well Developed, Well Nourished and No Apparent Distress
HEENT: Anicteric
Respiratory: Clear
Cardiac: S1/S2
Breast: Deferred by me
GI: Soft and Tender (Minimal expected tenderness in the epigastric area. Unchanged per patient)
Musculoskeletal: No Edema
Skin: Warm and Dry
Neuro: AO x 3
Psych: Calm
Results
WBC 9.3 10^3/uL (4.8-10.8) 11/20/24 04:17
Hgb 10.5 g/dL (12.0-16.0) L 11/20/24 04:17
Hct 31.3 % (37.0-47.0) L 11/20/24 04:17
MCV 86.9 fL (81.0-99.0) 11/20/24 04:17
Plt Count 226 10^3/uL (130-400) D 11/20/24 04:17
Absolute Neuts (auto) 8.1 10^3/uL (1.4-6.5) H 11/19/24 16:45
Sodium 136 mmol/L (135-145) 11/20/24 04:17
Potassium 4.0 mmol/L (3.5-5.1) 11/20/24 04:17
Chloride 107 mmol/L (98-107) 11/20/24 04:17
Carbon Dioxide 24 mmol/L (22-30) 11/20/24 04:17
BUN 15 mg/dl (7-17) 11/20/24 04:17
Creatinine 0.7 mg/dL (0.6-1.0) 11/20/24 04:17
Calcium 8.2 mg/dl (8.4-10.2) L 11/20/24 04:17
Total Bilirubin 1.0 mg/dl (0.2-1.3) 11/19/24 16:45
AST 22 U/L (14-36) 11/19/24 16:45
ALT 18 U/L (0-35) 11/19/24 16:45
Alkaline Phosphatase 134 U/L (38-126) H 11/19/24 16:45
Lipase 130 U/L (23-300) 11/19/24 16:45
Diagnostic Image Results:
CT scan on 11/19/2024 with IV contrast liver shows a low-attenuation 1.7 cm lesion is not seen on MRI, gallbladder shows cholelithiasis gallbladder distention similar to prior exam. Biliary stents are in place with stable distention of the common
hepatic duct measuring 1.3 cm with no common bile duct dilation surrounding the biliary stents. Trace pneumobilia. No pancreatic ductal dilatation. Mild haziness of the peripancreatic fat suggesting mild pancreatitis. Focal high-grade stenosis
of the mid portal vein. Splenic and superior mesenteric vein are patent. Normal-sized spleen.
10/26/24 Abd MRI:
Severe intrahepatic and extrahepatic bile duct dilatation, and narrowing of the common bile duct at the level of the head of the pancreas most in keeping with a bile duct stricture. Concern for a malignant stricture with a region of ill-defined soft
tissue attenuation at the superior margin of the head of the pancreas measuring 2.4 x 2.1 cm suspicious for pancreatic adenocarcinoma. Recommend soft tissue sampling for more definitive characterization.
2.1 cm focus of intermediate signal in the central aspect of the medial left hepatic lobe. Possibly periportal edema or volume averaging, but a metastatic liver lesion or other neoplastic process such as a cholangiocarcinoma are not excluded.
Recommend continued attention on follow-up imaging and/or soft tissue sampling.
Cholelithiasis.
Prior GI Procedures:
ERCP 10/26/2024: Severe biliary stricture in the lower third of the main bile duct with severe proximal dilation. 2 plastic stents were placed in the common bile duct 10 [place] by 7 cm and 7 [place] by 7 cm
EUS 10/26/2024, mass in the pancreatic head stage T2 NX MX by EUS that was positive for adenocarcinoma., Bile duct measured 17 mm with multiple stones in the cystic duct and gallbladder body.
EGD:
Colonoscopy: 2022, Dr. Mulligan 2 small adenomas removed 5-year recall
Assessment / Plan
-
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
significant new abdominal pain and normal liver enzymes including bilirubin other than very mildly elevated alkaline phosphatase
# Fever
-- Etiology of fevers is most likely tumor vs biliary source given her recently placed stents despite normal liver enzymes and stable, hepatic dilation proximal to the stents
-- However, the stents are most likely patent with normal liver enzymes.
-- Urine is negative, blood cultures are pending, empiric antibiotics are appropriately being given
-- Her chest x-ray does show mild diffuse nonspecific pneumonitis in the bilateral midlung zones and right lower lobe with no consolidation. - her lungs are clear and no signs of PNA - mild rare coughx 3 wks; no signs of DVT on exam
-- Monitor LFTs, follow blood cultures
-- If LFTs change or blood cultures grow a biliary bug, would need to do a down and back to [place] for biliary stent exchange
-- should have more answers tomorrow.
#DVT proph - lovenox and told patient to ambulate
#panc CA -was supposed to get her port placement tomorrow but in setting of fever this will likely be delayed
-- She did see Dr. Bulmaro Ponce at [place] about 2 weeks ago. The plan was for chemo then hopeful resection
Data Reviewed
-
CT Scan: Report Reviewed by me
Ultrasound: Report Reviewed by me
MRI: Report Reviewed by me
Old Records: Reviewed
-
-
Thank you for consultation and allowing me to participate in the patient's care. Please call the weight loss sales consultant GI physician during the after hours with any questions or concerns.
--- NOTE | 2024-11-20 07:44 | W.PN.HOSP.TC ---
Today's Communication/Plan
-
Await blood cultures
Continue antibiotics
Assessment / Plan
Assessment / Plan
Gen-AAOx3, NAD, nontoxic
HEENT-NC, AT, anicteric, clear oral mm
Neck-supple
CV-reg, no M, +S1/S2
Lungs-clear B/L
Abd-soft, mild epigastric tenderness without guarding or rebound, nondistended
Ext-no edema
Musculoskeletal-no cyanosis, clubbing
Skin-warm and dry
Neuro-grossly non-focal
Psych-calm, cooperative
Sepsis -presentation with mild leukocytosis and fever, mild tachycardia. Hemodynamically stable.
Differential diagnosis includes possible pneumonia, malignancy, biliary sepsis, VTE, etc.
She has minimal pulmonary symptoms, complaining of dry cough. Denies dyspnea on exertion. is sick at home with pneumonia.
Abdominal discomfort has not changed. Denies nausea vomiting or diarrhea. Denies lower extremity pain or swelling. Denies chest pain. Low suspicion for VTE.
Chest x-ray with mild diffuse nonspecific pneumonitis in bilateral midlung zones and right lower lobe without focal dense consolidation. I reviewed it myself, I see no consolidation.
CT scan abdomen/pelvis shows mild bibasilar ground glass opacities/pneumonitis in the lungs, right greater than left. 1.7 cm intrahepatic focus, cannot rule out small metastatic lesion. Stable cholelithiasis with gallbladder distention. Biliary
stents in place. Mass in the superior margin of the pancreatic head noted.
Await blood cultures. COVID and influenza negative. Currently on IV Zosyn. She did receive a dose of vancomycin last night.
Leukocytosis resolved. Last temperature 98.6 �F. She looks and feels well otherwise.
Pancreatic adenocarcinoma -recent diagnosis. Biliary stent placed 10/26/2024 for single severe biliary stricture in the lower third of the main bile duct. She is scheduled for port placement tomorrow and to begin chemotherapy in early November. Will
have to delay port placement given hospitalization for sepsis.
Acute normocytic anemia -hemoglobin 12.1 yesterday, 10.5 today. Possibly due to hemodilution from IV fluid administration. Monitor for now.
Hyponatremia -POA. Resolved. Possibly hypovolemic hyponatremia, improved with normal saline.
Recent post ERCP pancreatitis
Full code
Anticipated Discharge: > 48 hours
Subjective/Interval History
-
Date of Service: November 20, 2024
Patient seen and examined, no complaints.
Objective Data
-
Labs:
Laboratory Results
11/20/24
04:17
WBC 9.3
Hgb 10.5 L
Hct 31.3 L
Plt Count 226 D
Sodium 136
Potassium 4.0
Chloride 107
Carbon Dioxide 24
BUN 15
Creatinine 0.7
Glucose 102 H
Calcium 8.2 L
Vital Signs:
Vital Signs
Temp Pulse Resp BP Pulse Ox
98.6 F 97 17 104/70 96
11/19/24 23:05 11/19/24 23:05 11/19/24 23:05 11/19/24 23:05 11/19/24 23:05
I&O
11/19/24 11/20/24 11/21/24
06:59 06:59 06:59
Intake Total 50 / 50
Balance 50 / 50
Review of Systems
-
History Source: Patient
All other systems: Reviewed and negative
[2024-11-20] MEDS: TYLENOL 650 MG PO ×2 (09:07→23:58)
[2024-11-20] MEDS: FLUSH (NSS) 1 FLUSH IV ×2 (09:08→14:45)
--- NOTE | 2024-11-20 12:35 | CM ---
Met with patient to obtain information for assessment. Patient stated that she lives with her spouse in a single two story home with two steps to enter. She described herself as independent with all of her ADLs, personal care, dressing and bathing.
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 She drives and get to her appointments and does all of her own shopping. She has a walker that she does not use. She has never had VN services or been to a SNF.
Plan: Case management will continue to follow and assist with discharge planning. Home when cleared.
[2024-11-20 15:25] VITALS: BP 109/47
--- NOTE | 2024-11-20 15:32 | PTCARENOTE ---
Pt AAO x3, JIMENEZ well, OOB in room/to BR; lauri well, no c/o weakness/dizziness. VSS. On room air- pulse ox 100%, no SOB noted. Abd soft, lauri PO; occ c/o epigastric 'ache'. Voids in BR without difficulty. Resting comfortably at present. Will
continue to monitor.
[2024-11-20] MEDS: LOVENOX 40 MG SC (17:47)
[2024-11-20 23:34] VITALS: BP 94/53
[2024-11-21] MEDS: ZOSYN 50 IV ×4 (01:55→20:07)
[2024-11-21 07:01] LABS: Hematocrit 29.8 % (37.0-47.0); Hemoglobin 10.1 g/dL (12.0-16.0); Mean Corp Hgb Conc. 33.9 g/dL (33.0-37.0); Mean Corpuscular Volume 86.4 fL (81.0-99.0); Nucleated Red Blood Cells % 0 %; Platelet Count 217 10^3/uL (130-400); Red Cell Dist. Width 14.5 % (11.5-14.5)
[2024-11-21 07:37] LABS: ALT (SGPT) 15 U/L (0-35); AST (SGOT) 17 U/L (14-36); Albumin 2.7 g/dl (3.5-5.0); Alkaline Phosphatase 101 U/L (38-126); Blood Urea Nitrogen 13 mg/dl (7-17); Calcium 8.5 mg/dl (8.4-10.2); Carbon Dioxide 25 mmol/L (22-30); Chloride 107 mmol/L (98-107); Estimated Creatinine Clearance 68 ml/min; Glucose 90 mg/dl (70-99); Potassium 3.6 mmol/L (3.5-5.1); Sodium 134 mmol/L (135-145); Total Protein 5.1 g/dl (6.3-8.2); eGFR > 60.00
--- NOTE | 2024-11-21 07:40 | W.PN.HOSP.TC ---
Today's Communication/Plan
-
Continue Zosyn
See plan
Assessment / Plan
Assessment / Plan
Gen-AAOx3, NAD, nontoxic
HEENT-NC, AT, anicteric, clear oral mm
Neck-supple
CV-reg, no M, +S1/S2
Lungs-clear B/L
Abd-soft, mild epigastric tenderness without guarding or rebound, nondistended
Ext-no edema
Musculoskeletal-no cyanosis, clubbing
Skin-warm and dry
Neuro-grossly non-focal
Psych-calm, cooperative
Sepsis and fever -- tumor fever versus biliary source -- presentation with mild leukocytosis and fever, mild tachycardia. Hemodynamically stable.
Differential diagnosis includes possible pneumonia, malignancy, biliary sepsis, VTE, etc.
She has minimal pulmonary symptoms, complaining of dry cough. Denies dyspnea on exertion. is sick at home with pneumonia.
Abdominal discomfort has not changed. Denies nausea vomiting or diarrhea. Denies lower extremity pain or swelling. Denies chest pain. Low suspicion for VTE.
Chest x-ray with mild diffuse nonspecific pneumonitis in bilateral midlung zones and right lower lobe without focal dense consolidation.
CT scan abdomen/pelvis shows mild bibasilar ground glass opacities/pneumonitis in the lungs, right greater than left. 1.7 cm intrahepatic focus, cannot rule out small metastatic lesion. Stable cholelithiasis with gallbladder distention. Biliary
stents in place. Mass in the superior margin of the pancreatic head noted.
Await blood cultures. COVID and influenza negative. Currently on IV Zosyn. She did receive a dose of vancomycin last night.
Leukocytosis resolved. Last fever was 100.8 F on 11/20/24 evening. She looks and feels well otherwise.
COVID negative -- patient's stent may need to re-evaluated at [place].
Pancreatic adenocarcinoma -recent diagnosis. Biliary stent placed 10/26/2024 for single severe biliary stricture in the lower third of the main bile duct. She is scheduled for port placement and to begin chemotherapy in early November 2024. Will have
to delay port placement given hospitalization for sepsis.
Acute normocytic anemia - Stable. Continue to monitor.
Hyponatremia -POA. Resolved. Possibly hypovolemic hyponatremia, improved with normal saline.
Recent post ERCP pancreatitis
Full code
Anticipated Discharge: 24 - 48 hours
Subjective/Interval History
-
Date of Service: November 21, 2024
Patient was seen and examined. She reports overall feeling better compared to when she came in, she still has abdominal ache.
Objective Data
-
Labs:
Laboratory Results
11/21/24
06:43
WBC 9.0
Hgb 10.1 L
Hct 29.8 L
Plt Count 217
Sodium 134 L
Potassium 3.6
Chloride 107
Carbon Dioxide 25
BUN 13
Creatinine 0.7
Glucose 90
Calcium 8.5
Total Bilirubin 1.1
AST 17
ALT 15
Alkaline Phosphatase 101
Vital Signs:
Vital Signs
Temp Pulse Resp BP Pulse Ox
99.6 F 100 18 94/53 98
11/21/24 04:00 11/20/24 23:34 11/20/24 23:34 11/20/24 23:34 11/20/24 23:34
I&O
11/20/24 11/21/24 11/22/24
06:59 06:59 06:59
Intake Total 50 / 50 940 / 940
Balance 50 / 50 940 / 940
[2024-11-21 07:46] VITALS: BP 103/58
--- NOTE | 2024-11-21 08:41 | W.PN.GI.CBS2 ---
Today's Communication / Plan
-
-- COVID pending and awaiting response from [facility]
Assessment / Plan
-
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
significant new abdominal pain and normal liver enzymes including bilirubin other than very mildly elevated alkaline phosphatase
# Fever - continues through antibiotics.
-- Etiology of fevers is most likely tumor vs biliary source given her recently placed stents despite normal liver enzymes and stable, hepatic dilation proximal to the stents
-- However, the stents are most likely patent with normal liver enzymes.
-- Urine is negative, blood cultures are NGTD, empiric antibiotics are appropriately being given
-- Her chest x-ray does show mild diffuse nonspecific pneumonitis in the bilateral midlung zones and right lower lobe with no consolidation. - her lungs are clear and no signs of PNA - mild rare coughx 3 wks; no signs of DVT on exam
-- Monitor LFTs, follow blood cultures
-- If LFTs change or blood cultures grow a biliary bug, would need to do a down and back to [facility] for biliary stent exchange
-- CHECK COVID today - ordered and done; flu was negative
-- I sent a message to discuss with Dr. Kline to see if he thinks she needs biliary stent exchange since if COVID is negative, that would be the potential source other than tumor fever
#DVT proph - lovenox and told patient to ambulate
#panc CA -was supposed to get her port placement tomorrow but in setting of fever this will likely be delayed
-- She did see Dr. Bulmaro Ponce at [facility] about 2 weeks ago. The plan was for chemo then hopeful resection
Subjective
Subjective
Date of Service: November 21, 2024
Patient spiked a fever last night of 100.8. She does not feel these fevers. Her only symptoms before coming in were fatigue, mild headache. She has had a 3-week mild cough.
Objective
Data Reviewed
Laboratory Data:
Laboratory Results
11/21/24 06:43
11/21/24 06:43
Laboratory Results
Total Bilirubin 1.1 mg/dl (0.2-1.3) 11/21/24 06:43
AST 17 U/L (14-36) 11/21/24 06:43
ALT 15 U/L (0-35) 11/21/24 06:43
Alkaline Phosphatase 101 U/L (38-126) 11/21/24 06:43
Lipase 130 U/L (23-300) 11/19/24 16:45
Vital Signs and I&O:
Vital Signs
Temp Pulse Resp BP Pulse Ox
99.9 F 111 14 103/58 94
11/21/24 07:46 11/21/24 07:46 11/21/24 07:46 11/21/24 07:46 11/21/24 07:46
I&O
11/20/24 11/21/24 11/22/24
06:59 06:59 06:59
Intake Total 50 / 50 940 / 940
Balance 50 / 50 940 / 940
Physical Exam
Physical Exam
HEENT: Anicteric
Pulmonary: Clear
GI: Soft and Tender (Minimal tenderness epigastric area which has been chronic)
Extremities: No Edema
Neuro: Non Focal
[2024-11-21 08:44] LABS: COVID-19 Antigen Negative (Negative)
[2024-11-21] MEDS: TYLENOL 650 MG PO ×2 (11:52→23:00)
[2024-11-21 15:21] VITALS: BP 95/62
[2024-11-21] MEDS: LOVENOX 40 MG SC (17:29)
--- NOTE | 2024-11-21 18:38 | W.PN.UPDATE ---
Update Note
Progress Note Update
spoke to [facility] about her and they want to take her for a down and back to [facility] to exchange her biliary stents since Dr. Ponce is not available. I just spoke to Luzma on the phone and she is aware and agreeable
[2024-11-21 23:10] VITALS: BP 101/55
[2024-11-22] MEDS: ZOSYN 50 IV ×3 (03:22→20:08)
[2024-11-22 07:00] VITALS: BP 99/57
[2024-11-22 07:52] LABS: Hematocrit 29.2 % (37.0-47.0); Hemoglobin 9.8 g/dL (12.0-16.0); Mean Corp Hgb Conc. 33.6 g/dL (33.0-37.0); Mean Corpuscular Volume 85.4 fL (81.0-99.0); Nucleated Red Blood Cells % 0 %; Platelet Count 229 10^3/uL (130-400); Red Cell Dist. Width 14.4 % (11.5-14.5)
[2024-11-22 08:26] LABS: ALT (SGPT) 14 U/L (0-35); AST (SGOT) 15 U/L (14-36); Albumin 2.7 g/dl (3.5-5.0); Alkaline Phosphatase 118 U/L (38-126); Blood Urea Nitrogen 13 mg/dl (7-17); Calcium 8.1 mg/dl (8.4-10.2); Carbon Dioxide 25 mmol/L (22-30); Chloride 106 mmol/L (98-107); Estimated Creatinine Clearance 68 ml/min; Glucose 83 mg/dl (70-99); Magnesium 2.1 mg/dl (1.6-2.3); Potassium 3.5 mmol/L (3.5-5.1); Sodium 136 mmol/L (135-145); Total Protein 5.0 g/dl (6.3-8.2); eGFR > 60.00
[2024-11-22] MEDS: TYLENOL 650 MG PO (08:39)
[2024-11-22] MEDS: FLUSH (NSS) 1 FLUSH IV (08:39)
--- NOTE | 2024-11-22 09:19 | CM ---
Per [facility], patient scheduled for ERCP at [facility], 4th floor [facility] today at 1 pm.
Call to [facility], spoke with [facility], scheduled picker operator time 10:30 am.
[facility] will schedule return trip.
Medical necessity forms completed and given to health unit coordinator.
Nursing updated.
--- NOTE | 2024-11-22 10:56 | PTCARENOTE ---
Pt transported to [facility] via ambulance for procedure.
[2024-11-22] MEDS: ZOSYN IV (13:47)
--- NOTE | 2024-11-22 16:00 | PTCARENOTE ---
Pt remains off unit/@ [facility] for GI procedure.
--- NOTE | 2024-11-22 16:00 | W.PN.HOSP.TC ---
Today's Communication/Plan
-
Patient went for ERCP/stent exchange at [facility] today.
Continue antibiotics
Monitor temperature curve for fever resolution
Check bilateral lower extremity ultrasound for completeness
Assessment / Plan
Assessment / Plan
Physical Exam
Gen-AAOx3, NAD, nontoxic
HEENT-NC, AT, anicteric, clear oral mm
Neck-supple
CV-reg, no M, +S1/S2
Lungs-clear B/L
Abd-soft, mild epigastric tenderness without guarding or rebound, nondistended
Ext-no edema
Musculoskeletal-no cyanosis, clubbing
Skin-warm and dry
Neuro-grossly non-focal
Psych-calm, cooperative
Assessment/Plan
Sepsis and fever -- tumor (malignancy) fever versus biliary source -- presentation with mild leukocytosis and fever, mild tachycardia. Hemodynamically stable.
Differential diagnosis also includes possible pneumonia, biliary sepsis, VTE, etc.
She has minimal pulmonary symptoms, complaining of dry cough. Denies dyspnea on exertion. is sick at home with pneumonia.
Abdominal discomfort has not changed. Denies nausea vomiting or diarrhea. Denies lower extremity pain or swelling. Denies chest pain. Low suspicion for VTE, although check bilateral lower extremity ultrasound given persistent fevers.
Chest x-ray with mild diffuse nonspecific pneumonitis in bilateral midlung zones and right lower lobe without focal dense consolidation.
CT scan abdomen/pelvis shows mild bibasilar ground glass opacities/pneumonitis in the lungs, right greater than left. 1.7 cm intrahepatic focus, cannot rule out small metastatic lesion. Stable cholelithiasis with gallbladder distention. Biliary
stents in place. Mass in the superior margin of the pancreatic head noted.
Await blood cultures -- no growth to date. COVID and influenza negative. Currently on IV Zosyn. She did receive a dose of Vancomycin earlier this hospitalization.
Leukocytosis resolved. Last fever was 103 F on 11/21/24 at 23:10. She looks and feels well otherwise.
COVID negative
Patient went for ERCP/stent exchange at [facility] today.
Pancreatic adenocarcinoma - recent diagnosis. Biliary stent placed 10/26/2024 for single severe biliary stricture in the lower third of the main bile duct. She is scheduled for port placement and to begin chemotherapy in early November 2024. Will have
to delay port placement given hospitalization for sepsis.
Acute normocytic anemia - Stable. Continue to monitor.
Hyponatremia - POA. Resolved. Possibly hypovolemic hyponatremia, improved with normal saline.
Recent post ERCP pancreatitis
Full code
Anticipated Discharge: 24 - 48 hours
Subjective/Interval History
-
Date of Service: November 22, 2024
Patient was seen and examined. She reported fever overnight, no other new significant symptoms or complaints.
Objective Data
-
Labs:
Laboratory Results
11/22/24
07:23
WBC 9.3
Hgb 9.8 L
Hct 29.2 L
Plt Count 229
Sodium 136
Potassium 3.5
Chloride 106
Carbon Dioxide 25
BUN 13
Creatinine 0.7
Glucose 83
Calcium 8.1 L
Total Bilirubin 1.1
AST 15
ALT 14
Alkaline Phosphatase 118
Vital Signs:
Vital Signs
Temp Pulse Resp BP Pulse Ox
100.1 F 89 18 99/57 93
11/22/24 07:00 11/22/24 07:00 11/22/24 07:00 11/22/24 07:00 11/22/24 08:32
I&O
11/21/24 11/22/24 11/23/24
06:59 06:59 06:59
Intake Total 940 / 940 1680 / 1680
Balance 940 / 940 1680 / 1680
--- NOTE | 2024-11-22 18:32 | PTCARENOTE ---
Pt returned from [facility] s/p ERCP/stent replacement. Pt AO x3, JIMENEZ well, Abd soft, non-tender, BS(+). Pt states 'I feel pretty good right now'. Pt to start low fat/low reside diet. Currently resting comfortably. Will continue to monitor.
[2024-11-22] MEDS: LOVENOX 40 MG SC (18:38)
[2024-11-22 18:40] VITALS: BP 120/68
[2024-11-22 23:30] VITALS: BP 102/64
[2024-11-23] MEDS: ZOSYN 50 IV ×2 (01:07→10:12)
[2024-11-23 07:42] VITALS: BP 105/57
[2024-11-23 07:45] LABS: Hematocrit 29.5 % (37.0-47.0); Hemoglobin 9.9 g/dL (12.0-16.0); Mean Corp Hgb Conc. 33.6 g/dL (33.0-37.0); Mean Corpuscular Volume 85.8 fL (81.0-99.0); Nucleated Red Blood Cells % 0 %; Platelet Count 247 10^3/uL (130-400); Red Cell Dist. Width 14.3 % (11.5-14.5)
[2024-11-23 08:10] LABS: ALT (SGPT) 15 U/L (0-35); AST (SGOT) 16 U/L (14-36); Albumin 2.8 g/dl (3.5-5.0); Alkaline Phosphatase 123 U/L (38-126); Blood Urea Nitrogen 22 mg/dl (7-17); Calcium 8.8 mg/dl (8.4-10.2); Carbon Dioxide 27 mmol/L (22-30); Chloride 103 mmol/L (98-107); Estimated Creatinine Clearance 68 ml/min; Glucose 113 mg/dl (70-99); Potassium 4.0 mmol/L (3.5-5.1); Sodium 135 mmol/L (135-145); Total Protein 5.2 g/dl (6.3-8.2); eGFR > 60.00
--- NOTE | 2024-11-23 08:23 | W.PN.GI.CBS2 ---
Today's Communication / Plan
-
no further inpatient w/u
Assessment / Plan
-
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
significant new abdominal pain and normal liver enzymes including bilirubin other than very mildly elevated alkaline phosphatase
s/p ERCP with stent replacement with metal stent
impression:
panc ca biliary stricture s/p ERcp
plan:
complete with 7 day course of augmentin
no further inpatient w/u
f/u with dr. mota already scheduled for 01/30
will sign off call with questions
Subjective
Subjective
Date of Service: November 23, 2024
Pt feels great after stent placed at [facility] yesterday. Ate full dinner last night w/o issue
Objective
Data Reviewed
Laboratory Data:
Laboratory Results
11/23/24 06:42
11/23/24 06:42
Laboratory Results
Magnesium 2.1 mg/dl (1.6-2.3) 11/22/24 07:23
Total Bilirubin 0.7 mg/dl (0.2-1.3) 11/23/24 06:42
AST 16 U/L (14-36) 11/23/24 06:42
ALT 15 U/L (0-35) 11/23/24 06:42
Alkaline Phosphatase 123 U/L (38-126) 11/23/24 06:42
Lipase 130 U/L (23-300) 11/19/24 16:45
Vital Signs and I&O:
Vital Signs
Temp Pulse Resp BP Pulse Ox
98.1 F 80 18 102/64 97
11/22/24 23:30 11/22/24 23:30 11/22/24 23:30 11/22/24 23:30 11/22/24 23:30
I&O
11/22/24 11/23/24 11/24/24
06:59 06:59 06:59
Intake Total 1680 / 1680 490 / 490
Balance 1680 / 1680 490 / 490
Physical Exam
Physical Exam
GI: Soft, Non Distended and Tender
--- NOTE | 2024-11-23 13:22 | W.PN.HOSP.TC ---
Today's Communication/Plan
-
Discharge today
Assessment / Plan
Assessment / Plan
Physical Exam
Gen-AAOx3, NAD, nontoxic
HEENT-NC, AT, anicteric, clear oral mm
Neck-supple
CV-reg, no M, +S1/S2
Lungs-clear B/L
Abd-soft, mild epigastric tenderness - IMPROVED - without guarding or rebound, nondistended
Ext-no edema
Musculoskeletal-no cyanosis, clubbing
Skin-warm and dry
Neuro-grossly non-focal
Psych-calm, cooperative
Assessment/Plan
Sepsis and fever -- tumor (malignancy) fever versus biliary source -- presentation with mild leukocytosis and fever, mild tachycardia. Hemodynamically stable.
Differential diagnosis also includes possible pneumonia, biliary sepsis, VTE, etc.
Patient is status post ERCP with stent replacement with metal stent on 11/22/24 at [facility] -- patient is feeling MUCH better after this procedure
She has minimal pulmonary symptoms. Denies dyspnea on exertion. is sick at home with pneumonia.
Abdominal discomfort has improved dramatically after the stent replacement. Denies nausea vomiting or diarrhea. Denies lower extremity pain or swelling. Denies chest pain. Low suspicion for VTE, lower extremity dopplers negative for DVT on
either side.
Chest x-ray with mild diffuse nonspecific pneumonitis in bilateral midlung zones and right lower lobe without focal dense consolidation.
CT scan abdomen/pelvis shows mild bibasilar ground glass opacities/pneumonitis in the lungs, right greater than left. 1.7 cm intrahepatic focus, cannot rule out small metastatic lesion. Stable cholelithiasis with gallbladder distention. Biliary
stents in place. Mass in the superior margin of the pancreatic head noted.
Blood cultures -- with no growth to date. COVID and influenza negative. Currently on IV Zosyn. She did receive a dose of Vancomycin earlier this hospitalization.
Leukocytosis resolved. Last fever was 103 F on 11/21/24 at 23:10. She looks and feels well otherwise.
COVID negative
On discharge, complete 7 day course of Augmentin
f/u with Dr. Ponce already scheduled for 01/30/25
Pancreatic adenocarcinoma - recent diagnosis. Biliary stent placed 10/26/2024 for single severe biliary stricture in the lower third of the main bile duct. She is scheduled for port placement and to begin chemotherapy in early November 2024. Follow-up
with oncologist.
Acute normocytic anemia - Stable. Continue to monitor.
Hyponatremia - POA. Resolved. Possibly hypovolemic hyponatremia, improved with normal saline.
Recent post ERCP pancreatitis
Full code
More than 30 minutes spent in discharge including
Final examination of the patient
Summarizing hospital stay
Instructions for continuing care to all relevant caregivers
Preparation of discharge records, prescriptions, and referral forms
Total time spent (in minutes): 37
Anticipated Discharge: Today
Subjective/Interval History
-
Date of Service: November 23, 2024
Patient was seen and examined. She reported feeling much better after her procedure yesterday. She would like to go home today.
Objective Data
-
Labs:
Laboratory Results
11/23/24
06:42
WBC 8.1
Hgb 9.9 L
Hct 29.5 L
Plt Count 247
Sodium 135
Potassium 4.0
Chloride 103
Carbon Dioxide 27
BUN 22 H
Creatinine 0.7
Glucose 113 H
Calcium 8.8
Total Bilirubin 0.7
AST 16
ALT 15
Alkaline Phosphatase 123
Vital Signs:
Vital Signs
Temp Pulse Resp BP Pulse Ox
97.4 F 75 16 105/57 96
11/23/24 07:42 11/23/24 07:42 11/23/24 07:42 11/23/24 07:42 11/23/24 07:42
I&O
07/06/1811/23/24 11/24/24
06:59 06:59 06:59
Intake Total 1680 / 1680 490 / 490
Balance 1680 / 1680 490 / 490
--- NOTE | 2024-11-23 14:23 | W.DCSUMMARY ---
Discharge Summary
Discharge Data
Date of Admission: 11/19/24
Date of Discharge: 11/23/24
Total time spent discharging patient (in min): 37
-
Pending Results: No
Hospital Course
69 y/o female with recent diagnosis of pancreatic cancer, status post biliary stent placement on 10/26/24 who presents to [facility] emergency room complaining of fever and chills at home. Patient's fever was at 103 F at home. She also reported persistent
abdominal discomfort -- which has been there for weeks. Patient was started on broad spectrum antibiotics for suspected biliary process. Tumor fever was also another possibility. Chest imaging suggested pneumonitis but not pneumonia. COVID and
Influenza testing were negative. On 11/22/24, patient went to [facility] for ERCP/stent exchange. Patient's symptoms and fever resolved once she returned to [facility] and she was stable for discharge home with oral antibiotics
and outpatient follow-up.
Discharge Plan
-
Patient Disposition: Home (Routine Discharge)
Discharge Diagnosis/Procedures: Sepsis and fever (fever resolved) -- tumor (malignancy) fever versus biliary source
Status post ERCP with stent replacement with metal stent on 11/22/24 at [facility]
Recent post ERCP pancreatitis
Pulmonary Groundglass Opacities/Nonspecific Pneumonitis
Pancreatic adenocarcinoma - recent diagnosis
Acute normocytic anemia
Hyponatremia
Constipation
Chest X-Ray Results (as per radiologist's report):
'FINDINGS:
Subtle patchy interstitial and groundglass opacity is demonstrated in the midlung zones, bilaterally, and right lower lobe, most likely reflecting nonspecific pneumonitis. No focal dense consolidation. Normal heart size without vascular congestion.
No pleural effusion or pneumothorax.
IMPRESSION:
Mild diffuse nonspecific pneumonitis in bilateral midlung zones and right lower lobe, without focal dense consolidation.'

CT Abdomen Pelvis Results (as per radiologist's report):
'FINDINGS:
Lower Chest:
Multifocal patchy groundglass opacities are noted in the lower lung zones, right greater than left. Nonspecific pneumonitis. No pleural or pericardial effusion.
Abdomen:
Liver: Normal in size. At the inferior medial margin, there is a subtle low-attenuation focus measuring approximately 1.7 cm (image 30 series 201) which appears isodense on delayed imaging. When correlated with MRI, no apparent space-occupying
lesion was demonstrated.
No other intrahepatic space-occupying lesion.
Gallbladder: Cholelithiasis. Gallbladder distention. Similar to prior examination.
Bile Ducts: Biliary stents in place. Stable distention of the common hepatic duct measuring up to 1.3 cm no common bile duct dilatation surrounding the biliary stents. Trace pneumobilia.
Pancreas: No main pancreatic duct dilatation. Mild hazy attenuation of the peripancreatic fat. This could suggest mild pancreatitis. There is an indistinct low-attenuation mass at the superior margin of the pancreatic head, which corresponds to a
mass seen on MRI, and appears to contribute to focal high-grade stenosis of the mid portal vein (image 23 and 24 series 201). There is otherwise relatively homogeneous pancreatic parenchymal enhancement. The splenic vein and superior mesenteric vein
are patent.
Spleen: Normal in size.
Adrenals: No adrenal mass.
Kidneys/Ureters: No obstructive uropathy.
Bowel: Mild to moderate colonic fecal burden. No dilated bowel loops or evidence of bowel obstruction.
The appendix is absent.
Peritoneum: No upper abdominal free air or ascites.
Vessels: No aortic aneurysm.
Retroperitoneum: No retroperitoneal periaortic mass or adenopathy.
Abdominal Wall: No anterior abdominal wall hernia.
Pelvis:
Metal artifact related to left hip prosthesis. As far as visualized, no pelvic free fluid or focal collection. Phlebolith calcifications are noted. No apparent adenopathy.
Bones:
No suspicious lesions. Mild degenerative disc disease.
IMPRESSION:
Mild bibasilar groundglass opacities/pneumonitis, right greater than left.
1.7 cm subtle low-attenuation intrahepatic focus not apparent on prior MRI and a space-occupying lesion. Cannot exclude the possibility of interval development of a small metastatic lesion.
Multifocal patchy groundglass opacities are noted in the lower lung zones, right greater than left. Nonspecific pneumonitis. No pleural or pericardial effusion.
Stable cholelithiasis with gallbladder distention.
Biliary stents in place. Stable distention of the common hepatic duct measuring up to 1.3 cm no common bile duct dilatation surrounding the biliary stents. Trace pneumobilia.
Mild hazy attenuation of the peripancreatic fat. This could suggest mild pancreatitis.
Indistinct low-attenuation mass at the superior margin of the pancreatic head, which corresponds to a mass seen on MRI, and appears to contribute to focal high-grade stenosis of the mid portal vein. The splenic vein and superior mesenteric vein are
patent.
Mild to moderate colonic fecal burden. No bowel obstruction.'
Condition: Good
Diet: Low Fat
Activity: As tolerated
Blood Work: CBC, BMP and Albumin check with your primary care provider's office in 4 to 5 days
Activity Restrictions/Additional Instructions:
Follow-up closely with your oncologist (you need port and will be started on chemotherapy soon) and show the hospital discharge paperwork to your oncologist and other outpatient physicians and providers.
You need pulmonary follow-up within the next few weeks for pneumonitis/groundglass opacities seen in hospital imaging.
Follow-up with wafer substrate tester Dr. Ponce on 01/30/25 as scheduled.
Referrals:
Bebeto Vargas MD [Active, Pulmonary Medicine] - in one to two weeks
Referral Note: Needs follow-up of groundglass opacities/pneumonitis from hospitalization imaging
Garcia Marrufo PA-C [Family Provider, [facility]] - in less than 1 week
Additional Discharge Medication Instructions: Amoxicillin-Clavulanate is a new medication.
Prescriptions:
New
amoxicillin-pot clavulanate 875-125 mg tablet
1 tab PO Q12H 7 Days Qty: 14 0RF
Continued
multivitamin Tablet
1 tab PO DAILY
calcium carbonate-vitamin D3 600 mg-5 mcg (200 unit) Tablet
1 tab PO DAILY
Vitamin C 100 mg Tablet
100 mg PO DAILY
cholecalciferol (vitamin D3) [Vitamin D3] 25 mcg (1,000 unit) Capsule
25 mcg PO DAILY
Discharge Orders:
Discharge Patient (As Directed); Ordered 11/23/24
Ordered By: Sandro Dunbar
Discharge Date and Time
Discharge Date/Time: 11/23/24 15:30
Print Language: SLOVENIAN
[2024-11-23 14:41] VITALS: BP 99/54
== END 2024-11-23 15:30 | disposition home or self-care (01) | DRG 871 ==
LOC: 4 EAST ACU 22:02
PROVIDERS: Emergency Medicine; Hospitalist; Nurse Practitioner Family; ADMITTING PHYSICIAN Hospitalist; ATTENDING PHYSICIAN Hospitalist; CONSULT PHYSICIAN Internal Medicine; EMERGENCY PHYSICIAN Emergency Medicine; FAMILY PHYSICIAN Physician Assistant Medical
DX: A41.9 Sepsis, unspecified organism (principal); J18.9 Pneumonia, unspecified organism; C25.9 Malignant neoplasm of pancreas, unspecified; K80.21 Calculus of gallbladder without cholecystitis with obstruction; E87.1 Hypo-osmolality and hyponatremia; R74.8 Abnormal levels of other serum enzymes; K82.8 Other specified diseases of gallbladder; J98.4 Other disorders of lung; D64.9 Anemia, unspecified; Z96.642 Presence of left artificial hip joint; Z82.49 Family history of ischemic heart disease and other diseases of the circulatory system; Z11.52 Encounter for screening for COVID-19
CPT/HCPCS: 71046; 74177; 80048; 80053; 81003; 83605; 83690; 83735; 85025; 85027; 87040; 87502; 87811; 93970; 96361; 96365; 96367; 99285; Q9967

== ENCOUNTER → 2024-12-06 08:22 | Outpatient (REF) | payer MEDICARE, OTHER, SELFPAY ==
[2024-12-06 08:57] VITALS: BMI 18.8
[2024-12-06 10:10] VITALS: BP 109/56; BP_SYST 77
[2024-12-06 10:25] VITALS: BP 103/50; BP_SYST 76
--- NOTE | 2024-12-06 10:58 | PTCARENOTE ---
No antibiotic pre procedure as per Dr. Olivares; patient has allergy to amoxicillin.
== END ==
LOC: RADI 08:22
PROVIDERS: ATTENDING PHYSICIAN Internal Medicine Hematology & Oncology
DX: C25.3 Malignant neoplasm of pancreatic duct (principal)
CPT/HCPCS: 36561; 76937; 77001; 99152; 99153; C1750

== ENCOUNTER → 2025-03-08 10:18 | Outpatient (REF) | payer MEDICARE, OTHER, SELFPAY ==
[2025-03-08 10:48] LABS: Glucose 85 mg/dl (70-99)
== END ==
LOC: PET 10:18
PROVIDERS: Internal Medicine Hematology & Oncology; ATTENDING PHYSICIAN Registered Nurse
DX: C25.3 Malignant neoplasm of pancreatic duct (principal); Z01.812 Encounter for preprocedural laboratory examination; K85.90 Acute pancreatitis without necrosis or infection, unspecified
CPT/HCPCS: 36415; 82947